=== PATIENT | male | born 1935 | race Caucasian/White ===

== ENCOUNTER 2024-03-20 10:48 | Outpatient (AMB) | payer MEDICARE, MEDICAID, SELFPAY ==
[2024-03-20 10:54] VITALS: BP 130/48; PULSE 63; O2SAT 96; BMI 28.2
--- NOTE | 2024-03-20 10:54 | HO.NEPHOV_ITS ---
Vital Signs 03/20/24 10:54 Height 5 ft 1 in Weight 149 lb BMI 28.2 BP 130/48 L Blood Pressure Location Rt brachial Position Sitting Pulse 63 Pulse Source Pulse Oximeter Pulse Oximetry (%) 96 Oxygen Delivery Method Room Air Intake Visit Reasons: CKD/ Conf w/daughter Electric Organ Checker Required: No Accompanied by: Daughter Allergies [email or web address] [From [facility]] Allergy (Unknown, Verified 03/20/24 10:58) Unknown Penicillins Allergy (Unknown, Verified 03/20/24 10:58) Hives HPI Comments Details: Blessing is a pleasant 89-year-old woman with a history of longstanding hypertension was found to have chronic kidney disease. Serum creatinine has been fluctuating between 1.2 and 1.4 mg/dL. Most recent serum creatinine was 1.8 with a EGFR of 40 mL/minute She was accompanied by her daughter. As for hypertension she is on amlodipine and losartan 25 mg b.i.d. along with metoprolol. erma [facility] Social History (Updated 03/20/24 @ 10:58 by AMADEO Guzman) Patient Tobacco Use Status: Former Tobacco user Review of Systems Const Denies fever(s) and Denies weight loss Card Denies chest pain Resp Denies cough and Denies hemoptysis GI Denies abdominal pain, Denies diarrhea and Denies nausea Musc Denies back pain Neuro Denies focal weakness Physical Exam Vital Signs: Last Vital Signs Pulse 63 03/20/24 10:54 BP 130/48 L 03/20/24 10:54 Pulse Ox 96 03/20/24 10:54 Oxygen Delivery Method Room Air 03/20/24 10:54 BMI result Body Mass Index 28.2 Const General: comfortable Nutritional Appearance: well nourished Orientation/consciousness: patient oriented x3 HEENT Head: No normal to inspection Mouth: moist mucous membranes Neck Neck: Yes supple and Yes no JVD Resp Auscultation: clear to auscultation bilaterally and no rales Cardio Jugular venous distension: no JVD Palpation: no palpable S3 and no palpable S4 Heart sounds: no rubs GI Palpation (GI): Soft to palpation and nontender Percussion: No Fluid wave present General: Yes no CVA tenderness Back/Spine/Pelvis Back: no CVA tenderness Skin General skin exam: no rashes or lesions noted Neuro General: patient oriented x3 Extrem General: Yes no pedal edema and No clubbing Results Reviewed Results Reviewed: Creatinine 1.28. All labs are reviewed Renal ultrasonogram in 10/30/2021 showed small kidneys measuring around 8.9 cm with increased echogenicity no hydronephrosis Nephrology Results: No Data to Display Assessment & Plan Assessment & Plan (1) CKD (chronic kidney disease): Code(s): N18.9 - Chronic kidney disease, unspecified Category: Medical (2) CKD (chronic kidney disease): Code(s): N18.9 - Chronic kidney disease, unspecified Category: Medical Plan . Blessing is a pleasant 89-year-old woman with a history of hypertension with CKD. She had an episode of ARLENE with creatinine peaking at 1.6 mg/dL. Currently serum creatinine is down to 1.28 which may be the baseline. Differential diagnosis for the CKD would include hypertensive nephrosclerosis. In the past there was no evidence of any obstruction.( October 2021) Recent urine sediments were bland therefore glomerulonephritis or interstitial disease seem unlikely. Recommendation I have initiated today workup for CKD including basic urine studies along with a follow up a renal ultrasonogram. Encouraged her to stay on low-sodium diet Increase p.o. fluid intake to maintain adequate hydration. Continue to avoid nephrotoxic agents including NSAIDs. Goal is to maintain blood pressure less than 130/80. Once the baseline workup is completed she returned to office in the next few weeks. I will keep you updated with her progress. I have reassured her and answered all her questions. Orders: Orders Complete Blood Count no Diff 2 Days N18.9 - Chronic kidney disease, unspecified UA and rflx microscopic 2 Days N18.9 - Chronic kidney disease, unspecified US renal BI Today N18.9 - Chronic kidney disease, unspecified Total Protein Urine Random 2 Days N18.9 - Chronic kidney disease, unspecified Creatinine Urine 2 Days N18.9 - Chronic kidney disease, unspecified Coding Level of Care Code New Pt Level 4 (24344) Diagnoses CKD (chronic kidney disease) N18.9
== END 2024-03-20 11:42 | disposition home or self-care (01) ==
PROVIDERS: PCP Physician Assistant Medical; Visit Provider Internal Medicine Hypertension Specialist
DX: N18.9 Chronic kidney disease, unspecified (principal)
CPT/HCPCS: 99204

== ENCOUNTER → 2024-03-20 10:48 | Outpatient (BNVA) | payer MEDICARE, MEDICAID, SELFPAY | PROVIDERS: PCP Physician Assistant Medical; Visit Provider Internal Medicine Hypertension Specialist | DX: N18.9 Chronic kidney disease, unspecified (principal) | CPT/HCPCS: 99202 ==

== ENCOUNTER 2024-06-21 14:44 | Outpatient (AMB) | payer MEDICARE, MEDICAID, SELFPAY ==
[2024-06-21 14:50] VITALS: BP 118/50; PULSE 64; O2SAT 96
--- NOTE | 2024-06-21 14:50 | HO.NEPHOV_ITS ---
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 Accompanied by: Daughter Allergies [email or web address] [From [facility]] Allergy (Unknown, Verified 06/21/24 14:56) Unknown Penicillins Allergy (Unknown, Verified 06/21/24 14:56) Hives Medication List - Last Reconciled 06/21/24 by Blayne Epps MD amlodipine 5 mg PO DAILY aspirin 81 mg PO DAILY bupropion HCl XL 150 mg PO QAM cholecalciferol (vitamin D3) 25 mcg PO DAILY docusate sodium 100 mg PO BEDTIME escitalopram oxalate 10 mg PO DAILY ipratropium bromide intranasal levothyroxine 112 mcg PO DAILY losartan 25 mg PO BID metoprolol succinate ER 25 mg PO BID omeprazole 40 mg PO DAILY rosuvastatin 10 mg PO BEDTIME HPI Comments Details: Blessing is a pleasant 89-year-old woman with a history of longstanding h ypertension was found to have chronic kidney disease. Serum creatinine has been fluctuating between 1.2 and 1.4 mg/dL. Most recent serum creatinine was 1.8 with a EGFR of 40 mL/minute She was accompanied by her daughter. As for hypertension she is on amlodipine and losartan 25 mg b.i.d. along with metoprolol. 06/21/24 REcently had a course of BActrim for bladder infection [facility] Social History Patient Tobacco Use Status: Former Tobacco user Physical Exam Vital Signs: Last Vital Signs Pulse 64 06/21/24 14:50 BP 118/50 L 06/21/24 14:50 Pulse Ox 96 06/21/24 14:50 Oxygen Delivery Method Room Air 06/21/24 14:50 Const General: comfortable Nutritional Appearance: well nourished Orientation/consciousness: patient oriented x3 HEENT Head: No normal to inspection Mouth: moist mucous membranes Neck Neck: Yes supple and Yes no JVD Resp Auscultation: clear to auscultation bilaterally and no rales Cardio Jugular venous distension: no JVD Palpation: no palpable S3 and no palpable S4 Heart sounds: no rubs GI Palpation (GI): Soft to palpation and nontender Percussion: No Fluid wave present General: Yes no CVA tenderness Back/Spine/Pelvis Back: no CVA tenderness Skin General skin exam: no rashes or lesions noted Neuro General: patient oriented x3 Extrem General: Yes no pedal edema and No clubbing Results Reviewed Nephrology Results: No Data to Display Assessment & Plan Assessment & Plan (1) CKD (chronic kidney disease): Code(s): N18.9 - Chronic kidney disease, unspecified Category: Medical (2) CKD (chronic kidney disease): Code(s): N18.9 - Chronic kidney disease, unspecified Category: Medical Plan . Blessing is a pleasant 89-year-old woman with a history of hypertension with CKD. She had an episode of ARLENE with creatinine peaking at 1.6 mg/dL. Currently serum creatinine is down to 1.28 which may be the baseline. Differential diagnosis for the CKD would include hypertensive nephrosclerosis. In the past there was no evidence of any obstruction.( October 2021) Recent urine sediments were bland therefore glomerulonephritis or interstitial disease seem unlikely. Encouraged her to stay on low-sodium diet Increase p.o. fluid intake to maintain adequate hydration. Continue to avoid nephrotoxic agents including NSAIDs. Goal is to maintain blood pressure less than 130/80. Recheck Creatinine since she was on Bactrim Orders: Orders Basic Metabolic Panel 3 Months N18.9 - Chronic kidney disease, unspecified Coding Level of Care Code Est Pt Level 4 (99900) Diagnoses CKD (chronic kidney disease) N18.9
== END 2024-06-21 15:23 | disposition home or self-care (01) ==
PROVIDERS: PCP Physician Assistant Medical; Visit Provider Internal Medicine Hypertension Specialist
DX: I12.9 Hypertensive chronic kidney disease with stage 1 through stage 4 chronic kidney disease, or unspecified chronic kidney disease (principal); N18.9 Chronic kidney disease, unspecified
CPT/HCPCS: 99214

== ENCOUNTER → 2024-06-21 14:44 | Outpatient (BNVA) | payer MEDICARE, MEDICAID, SELFPAY | PROVIDERS: PCP Physician Assistant Medical; Visit Provider Internal Medicine Hypertension Specialist | DX: I12.9 Hypertensive chronic kidney disease with stage 1 through stage 4 chronic kidney disease, or unspecified chronic kidney disease (principal); N18.9 Chronic kidney disease, unspecified | CPT/HCPCS: 99212 ==

== ENCOUNTER 2024-11-08 14:53 | Outpatient (AMB) | payer MEDICARE, MEDICAID, SELFPAY ==
[2024-11-08 14:53] VITALS: BP 122/52; PULSE 70; O2SAT 97; BMI 32.1
--- NOTE | 2024-11-08 14:53 | HO.NEPHOV_ITS ---
Vital Signs 11/08/24 14:53 Height 5 ft 1 in Weight 170 lb BMI 32.1 BP 122/52 L Blood Pressure Location Rt brachial Position Sitting Pulse 70 Pulse Source Pulse Oximeter Pulse Oximetry (%) 97 Oxygen Delivery Method Room Air Intake Visit Reasons: 4 Mon follow up/ Conf Events Associate Required: No Accompanied by: Daughter Allergies [email or web address] [From [facility]] Allergy (Unknown, Verified 11/08/24 14:55) Unknown Penicillins Allergy (Unknown, Verified 11/08/24 14:55) Hives Medication List - Last Reconciled 11/08/24 by Blayne Epps MD amlodipine 5 mg PO DAILY aspirin 81 mg PO DAILY bupropion HCl XL 150 mg PO QAM cholecalciferol (vitamin D3) 25 mcg PO DAILY docusate sodium 100 mg PO BEDTIME escitalopram oxalate 10 mg PO DAILY ipratropium bromide intranasal levothyroxine 112 mcg PO DAILY losartan 25 mg PO BID metoprolol succinate ER 25 mg PO BID omeprazole 40 mg PO DAILY rosuvastatin 10 mg PO BEDTIME HPI Comments Details: Blessing is a pleasant 89-year-old woman with a history of longstanding hypertension was found to have chronic kidney disease. Serum creatinine has been fluctuating between 1.2 and 1.4 mg/dL. Most recent serum creatinine was 1.8 with a EGFR of 40 mL/minute She was accompanied by her daughter. As for hypertension she is on amlodipine and losartan 25 mg b.i.d. along with metoprolol. 06/21/24 REcently had a course of BActrim for bladder infection 11/08/24 -Doing well. No new issues [facility] Social History Patient Tobacco Use Status: Former Tobacco user Physical Exam Vital Signs: Last Vital Signs Pulse 70 11/08/24 14:53 BP 122/52 L 11/08/24 14:53 Pulse Ox 97 11/08/24 14:53 Oxygen Delivery Method Room Air 11/08/24 14:53 BMI result Body Mass Index 32.1 Comfortable Neck supple no JVD. Lungs entry equal no rales. Heart S1-S2 heard no gallop or rub. Abdomen soft nontender. Neuro alert awake oriented. No asterixis. Extremities no edema. Results Reviewed Results Reviewed: October 2024 Creatinine 1.17 EGFR 43 mL/minute. Nephrology Results: No Data to Display Assessment & Plan Assessment & Plan (1) CKD (chronic kidney disease): Code(s): N18.9 - Chronic kidney disease, unspecified Category: Medical (2) CKD (chronic kidney disease): Code(s): N18.9 - Chronic kidney disease, unspecified Category: Medical Plan . Blessing is a pleasant 89-year-old woman with a history of hypertension with CKD. She had an episode of ARLENE with creatinine peaking at 1.6 mg/dL. Currently serum creatinine is down to 1.17 which may be the baseline. Differential diagnosis for the CKD would include hypertensive nephrosclerosis. In the past there was no evidence of any obstruction.( October 2021) Recent urine sediments were bland therefore glomerulonephritis or interstitial disease seem unlikely. Encouraged her to stay on low-sodium diet Increase p.o. fluid intake to maintain adequate hydration. Continue to avoid nephrotoxic agents including NSAIDs. Goal is to maintain blood pressure less than 130/80. Orders: Orders Basic Metabolic Panel 6 Months N18.9 - Chronic kidney disease, unspecified Coding Level of Care Code Est Pt Level 4 (77845) Diagnoses CKD (chronic kidney disease) N18.9
--- OUTSIDE RECORDS SUMMARY | 2024-11-08 17:02 | XMS_ITS | Encounter Summary ---
Author Organization [facility] Address [address] [place] [address] Care Team Providers Care Assistant Professor Of Communication Name Role Phone Lala Ruiz Primary Care Provider [phone] Encounter Details Date Type Department Care Team (Late st Contact Info) Description 07/17/2024 11:10 AM EDT Hospital Encounter TH HISTORIC ENCOUNTERS [facility] ONLY Lala Ruiz PA [address] [place] [address] Social History Tobacco Use Types Packs/Day Years Used Date Smoking Tobacco: Former Cigarettes 1 23 0 11/27/1956 - 11/27/1979 Smokeless Tobacco: Never Alcohol Use Standard Drinks/Week Comments No 0 (1 standard drink = 0.6 oz pur e alcohol) Sex and Gender Information Value Date Recorded Sex Assigned at Not on file Gender Identity Not on file Sexual Orientation Not on file documented as of this encounter Last Filed Vital Signs Vital Sign Reading Time Taken Comments Blood Pressure 129/63 07/17/2024 11:13 AM EDT Pulse 71 07/17/2024 11:13 AM EDT Temperature - - Respiratory Rate - - Oxygen Saturation - - Inhaled Oxygen Concentration - - Weight 78.6 kg (173 lb 3.2 oz) 07/17/2024 11:13 AM EDT Height 154.9 cm (5' 1 ) 10/15/2023 2:15 PM EST Body Mass Index 32.73 10/15/2023 2:15 PM EST documented in this encounter Progress Notes * STEPHANIE Reynolds - 07/17/2024 11:15 AM EDT Abdominal pain, resolved Acute gastroenteritis symptoms, resolved Abnormal CT abdomen consistent with colitis or enteritis - Refer the patient to a curriculum coordinator for further evaluation and management. - return to ER if any recurrent symptoms Urinary Tract Infection symptoms, resolved Culture from ER was negative - No need for further urine culture while on antibiotics. Bronchitis Sinusitis - Continue levofloxacin as directed - Prescribe benzonatate 100 mg 3 times daily as needed for cough suppression. - Advise the patient to use [id number] Delsym and fluticasone for postnasal drip and cough relief. Decreased Appetite according to patient's daughter Weight stable for over 3 years - Encourage the patient to consume nutritious meals and consider supplementing with Boost or Ensureif needed. - Monitor weight and report any significant changes to the healthcare provider. Microscopic Hematuria (Chronic) - Continue monitoring as the patient has been previously evaluated for this issue. - No further intervention needed at this time. Risks/benefits of the treatment plan were discussed thoroughly with patient. Patient is in agreement with the current plan of care and all questions were answered. Patient agreed to call immediately or go straight to the emergency room with any new or worsening symptoms, or any symptoms that patient or others find worrisome; patient will proceed to the ER immediately if unable to reach our office Patient will follow up in 3-5 days if no improvement (or as above) Chief Complaint: Chief Complaint Patient presents with ??? URI On abx but wants lungs checked, and she would like me to redip her urine to check to see if she still has infection , HPI: Blessing Arrieta is a 89 y.o. female. HPI The patient presents with a chief complaint of abdominal pain, which has improved since her visit to the ER. She had moderate to severe abdominal pain after experiencing a few days of diarrhea which has since resolved. The patient has a history of inflamed bowel on CT at the ER and was treated for a urinary tract infection in the hospital. She has had two doses of levofloxacin, which was prescribed for an upper respiratory infection/bronchitis. The patient reports a decreased appetite for the past few days, with no nausea or vomiting. She experienced diarrhea starting last Wednesday, which lasted until Wednesday, but has since resolved. She reports having had a scratchy throat while in the ER, but was advised not to worry about COVID as her labs were good. She completed a home COVID test, which was negative. The patient has been experiencing a cough with green sputum production, which has been keeping her up at night. She denies any fever, chills, chest pain, or shortness of breath. She spoke to a provider at our practice and was prescribed Levaquin to cover possible UTI as well as her respiratory symptoms. She reports overallshe is feeling better but is kept up at night with the cough and would like something for that. Remaining relevant ROS negative Vitals: Vitals: 07/17/24 1113 BP: 129/63 Pulse: 71 Temp: 96.6 ??F (35.9 ??C) SpO2: 97% Weight: 78.6 kg (173 lb 3.2 oz) Body mass index is 32.73 kg/m??. Allergies: Allergies Allergen Reactions ??? Penicillins Hives ??? Farxiga [Dapagliflozin] Other (See Comments) agitation Medications: Current Outpatient Medications Medication Sig Dispense Refill ??? acetaminophen (TYLENOL) 325 MG tablet Take 2 tablets (650 mg total) by mouth every 8 (eight) hours as needed for pain. ??? amLODIPine (NORVASC) tablet 5 mg Take 1 tablet (5 mg total) by mouth daily. ??? aspirin 81 MG EC tablet Take 1 tablet (81 mg total) by mouth daily. 100 tablet 1 ??? Brexpiprazole (Rexulti) 2 MG TABS Take 1 tablet by mouth daily. 90 tablet 1 ??? buPROPion (WELLBUTRIN XL) 150 MG 24 hr tablet TAKE ONE TABLET BY MOUTH EVERY MORNING 90 tablet 3 ??? docusate sodium (COLACE) 100 MG capsule Take 1 capsule (100 mg total) by mouth every night at bedtime. ??? escitalopram (LEXAPRO) tablet 10 mg TAKE 1/2 TABLET BY MOUTH TWICE DAILY 90 tablet 5 ??? ipratropium (ATROVENT) 0.03 % nasal spray spray or apply 2 sprays inside Nose 3 (three) times aday. 30 mL 2 ??? ketoconazole (NIZORAL) 2 % cream Apply topically 2 (two) times a day. To area under breasts as needed 30 g 0 ??? levoFLOXacin (Levaquin) 500 MG tablet Take 1 tablet (500 mg total) by mouth daily for 7 days. 7tablet 0 ??? levothyroxine (SYNTHROID) tablet 112 mcg TAKE ONE TABLET BY MOUTH EVERY DAY 90 tablet 3 ??? losartan (COZAAR) tablet 25 mg TAKE ONE TABLET BY MOUTH TWICE DAILY TO protect kidneys AND blood pressure 60 tablet 5 ??? metoprolol succinate (TOPROL-XL) 24 hr tablet 25 mg TAKE ONE TABLET BY MOUTH TWICE DAILY 180 tablet 3 ??? nitrofurantoin, macrocrystal-monohydrate, (MACROBID) 100 MG capsule Take 1 capsule (100 mg total) by mouth 2 (two) times a day for 7 days. 14 capsule 0 ??? omeprazole (PriLOSEC) 40 MG capsule TAKE ONE CAPSULE BY MOUTH AT BEDTIME 84 capsule 3 ??? RESTASIS 0.05 % ophthalmic emulsion Place 1 drop into both eyes 2 (two) times a day. 3 ??? rosuvastatin (CRESTOR) tablet 10 mg TAKE ONE TABLET BY MOUTH EVERY DAY 84 tablet 5 ??? vitamin D3 (cholecalciferol) 25 MCG (1000 UT) tablet Take 1 tablet (25 mcg total) by mouth daily. No current facility-administered medications for this visit. Social History: Social History Socioeconomic History ??? Marital status: Spouse name: Not on file ??? Number of children: Not on file ??? Years of education: Not on file ??? Highest education level: Not on file Occupational History ??? Not on file Tobacco Use ??? Smoking status: Former Packs/day: 1.00 Years: 20.00 Additional pack years: 0.00 Total pack years: 20.00 Types: Cigarettes Start date: 11/27/1956 Quit date: 11/27/1979 Years since quittin.6 ??? Smokeless tobacco: Never Substance and Sexual Activity ??? Alcohol use: No ??? Drug use: No ??? Sexual activity: Not on file Other Topics Concern ??? Not on file Social History Narrative ??? Not on file Social Determinants of Health Financial Resource Strain: Low Risk (06/07/2024) Overall Financial Resource Strain (CARDIA) ??? Difficulty of Paying Living Expenses: Not very hard Food Insecurity: No Food Insecurity (06/07/2024) Hunger Vital Sign ??? Worried About Running Out of Food in the Last Year: Never true ??? Ran Out of Food in the Last Year: Never true Transportation Needs: No Transportation Needs (06/07/2024) PRAPARE - Transportation ??? Lack of Transportation (Medical): No ??? Lack of Transportation (Non-Medical): No Social Connections: Not on file Housing Stability: Low Risk (06/07/2024) Housing Stability Vital Sign ??? Unable to Pay for Housing in the Last Year: No ??? Number of Places Lived in the Last Year: 1 ??? Unstable Housing in the Last Year: No Labs: Office Visit on 07/17/2024 Component Date Value Ref Range Status ??? POCT Glucose, Urine 07/17/2024 Negative Negative Final ??? POCT Urine Bilirubin 07/17/2024 Negative Final ??? POCT Ketones, Urine 07/17/2024 Negative Negative Final ??? POCT Specfic [place], Urine 07/17/2024 1.025 1.005 - 1.030 Final ??? POCT Blood, Urine 07/17/2024 Moderate (A) Negative Final ??? POCT Urine pH 07/17/2024 6.0 4.5 - 8.0 Final ??? POCT Protein, Urine 07/17/2024 Negative Negative Final ??? POCT Urine Urobilinogen 07/17/2024 Normal Final ??? POCT Nitrite, Urine 07/17/2024 Negative Negative, Unable to obtain valid result Final ??? POCT Leukocytes, Urine 07/17/2024 Negative Negative Final Admission on 07/12/2024, Discharged on 07/12/2024 Component Date Value Ref Range Status ??? Ventricular Rate ECG/Min 07/12/2024 72 BPM Final ??? Atrial Rate 07/12/2024 72 BPM Final ??? RI-Interval 07/12/2024 206 ms Final ??? QRS-Interval 07/12/2024 102 ms Final ??? QT-Interval 07/12/2024 418 ms Final ??? QTc 07/12/2024 457 ms Final ??? P [place] 07/12/2024 64 degrees Final ??? R [place] 07/12/2024 -30 degrees Final ??? T [place] 07/12/2024 7 degrees Final ??? WBC 07/12/2024 7.8 4.0 - 10.5 K/uL Final ??? RBC 07/12/2024 3.68 (L) 4.2 - 5.4 M/uL Final ??? Hemoglobin 07/12/2024 11.0 (L) 12.5 - 16.0 g/dL Final ??? Hematocrit 07/12/2024 35.2 (L) 37 - 47 % Final ??? MCV 07/12/2024 95.7 78 - 100 fL Final ??? MCH 07/12/2024 29.9 25 - 33 pg Final ??? MCHC 07/12/2024 31.3 (L) 32 - 36 g/dL Final ??? RDW 07/12/2024 13.2 12.1 - 16.2 % Final ??? Platelets 07/12/2024 201 150 - 450 K/uL Final ??? MPV 07/12/2024 10.3 7.4 - 11.4 fL Final ??? Neutrophils 07/12/2024 80.1 (H) 44 - 74 % Final ??? Lymphocytes 07/12/2024 11.2 (L) 20 - 48 % Final ??? Monocytes 07/12/2024 6.8 2 - 12 % Final ??? Eosinophils 07/12/2024 1.1 0 - 6 % Final ??? Basophils 07/12/2024 0.5 0 - 2 % Final ??? Neutrophils, Absolute 07/12/2024 6.3 1.8 - 7.8 K/uL Final ??? Lymphocytes Absolute 07/12/2024 0.9 (L) 1.0 - 3.2 K/uL Final ??? Monocytes Absolute 07/12/2024 0.5 0.0 - 0.8 K/uL Final ??? Eosinophils, Absolute 07/12/2024 0.1 0.0 - 0.5 K/uL Final ??? Basophils Absolute 07/12/2024 0.0 0.0 - 0.2 K/uL Final ??? Immature Granulocyte, Percent 07/12/2024 0.3 0 - 1 % Final ? ? Immature Granulocyte, Absolute 07/12/2024 0.02 <0.10 k/uL Final ??? Nucleated RBC 07/12/2024 0.0 0 - 1 % Final Comment: [place] [address] Rola Dave MD Director [facility] [id number] ??? BUN 07/12/2024 20 (H) 7 - 17 mg/dL Final ??? Creatinine, Blood 07/12/2024 1.2 (H) 0.5 - 1.0 mg/dL Final ? ? Glomerular Filtration Rate, Estima* 07/12/2024 43 (L) >60 Final Comment: <<NOTE>> This eGFR result was calculated using the Unified eGFR CKD-EPI Creatinine Equation (2020). ??? Sodium 07/12/2024 138 135 - 145 mmol/L Final ??? Potassium 07/12/2024 4.4 3.5 - 5.1 mmol/L Final ??? Chloride 07/12/2024 103 98 - 107 mmol/L Final ??? Carbon dioxide 07/12/2024 29 24 - 32 mmol/L Final ??? Anion Gap 07/12/2024 6 5 - 14 mmol/L Final ??? Glucose, Random 07/12/2024 112 70 - 199 mg/dL Final ??? Calcium 07/12/2024 9.3 8.4 - 10.2 mg/dL Final Comment: [place] [address] Rola Dave MD Director [facility] [id number] ??? Amylase 07/12/2024 22 (L) 29 - 103 U/L Final Comment: [place] [address] Rola Dave MD Director [facility] [id number] [id number] ??? Total Bilirubin 07/12/2024 0.6 0.3 - 1.0 mg/dL Final ??? Bilirubin, Direct 07/12/2024 0.1 0.0 - 0.2 mg/dL Final Comment: [place] [address] Rola Dave MD Director [facility] [id number] ??? Alkaline Phosphatase 07/12/2024 51 34 - 104 U/L Final ??? AST (SGOT) 07/12/2024 13 5 - 40 U/L Final ??? ALT (SGPT) 07/12/2024 6 (L) 7 - 52 U/L Final ??? LDH 07/12/2024 167 125 - 220 U/L Final Comment: [place] [address] Rola Dave MD Director [facility] [id number] [id number] ??? Lipase 07/12/2024 8 (L) 11 - 82 U/L Final Comment: [place] [address] Rola Dave MD Director [facility] [id number] [id number] ??? BNP 07/12/2024 86 0 - 100 pg/mL Final Comment: [place] [address] Rola Dave MD Director [facility] [id number] [id number] ??? High Sensitivity Troponin I 07/12/2024 6 0 - 14 ng/L Final Comment: hs-TnI results stratify to HIGH RISK category if any value > 100 ng/L or delta at 1 hour is greater than or equal to 15 ng/L (male and female). NOTE: Delta values are not applicable if symptoms began more than 12 hours pre-arrival. Risk stratification should include the calculation of the HEARt score. Testing performed using [facility] [employer] Access AccuTnl3+ Assay[place] [address] Rola Dave MD Director [facility] [id number] ??? Lactate W/Reflex LA 07/12/2024 0.7 0.5 - 2.0 mmol/L Final Comment: [place] [address] Rola Dave MD Director [facility] [id number] [id number] ??? Specimen Type: 07/12/2024 URINE CLEAN CATCH Final ??? Glucose, Ur 07/12/2024 NEGATIVE NEG mg/dL Final ??? Ketones, Ur 07/12/2024 NEGATIVE NEG mg/dL Final ??? Specific [place] 07/12/2024 1.020 1.005 - 1.030 Final ??? Occult Blood 07/12/2024 TRACE (A) NEG Final ??? pH, Ur 07/12/2024 5.5 4.5 - 8.0 Final ??? Protein, Ur 07/12/2024 NEGATIVE NEG mg/dL Final ??? Nitrite 07/12/2024 NEGATIVE NEG Final ??? Leukocyte Esterase 07/12/2024 SMALL (A) NEG Final ??? Clarity, UA 07/12/2024 CLEAR Final ??? Urine Color 07/12/2024 YELLOW Final Comment: Performed at [address] [address] Rola Dave MD Director [facility] [id number] ??? Specimen Description 07/12/2024 URINE CLEAN CATCH Final ??? Special Request 07/12/2024 NONE Final ??? Culture 07/12/2024 Final Value:1000 TO 10,000 COL/ML MIXED UROGENITAL ERIKA Performed at [address] [address], Rola Dave MD Director [facility] [id number] ??? Report Status 07/12/2024 FINAL Final 07/14/2024 ??? WBC, Ur 07/12/2024 16 (H) 0 - 5 /HPF Final ??? RBC, Ur 07/12/2024 2 0 - 3 /HPF Final ??? Epithelial Cells 07/12/2024 2 0 - 5 /LPF Final ??? Urine Casts 07/12/2024 Hyaline cast (A) NONE /LPF Final 2 ??? Bacteria, UA 07/12/2024 PRESENT (A) NONE Final ??? Mucus, UA 07/12/2024 PRESENT (A) NONE Final Comment: Performed at [address] [place] [address] Rola Dave MD Director [facility] [id number] Review of Systems: Review of Systems Negative to standard list unless noted in HPI Physical Exam: Physical Exam Pleasant elderly white female no distress Facial expression speech posture gait coordination strength and mental status within normal limits/at baseline Lungs clear bilaterally Heart regular rate and rhythm Abdomen soft nontender normal bowel sounds nondistended Extremities warm well-perfused without cyanosis or edema Reviewed ER notes, labs Orders Placed This Encounter: Orders Placed This Encounter Procedures ??? CULTURE, URINE, ROUTINE Standing Status: Future Number of Occurrences: 1 Standing Expiration Date: 07/17/2025 ??? Microscopic, Random Urine Standing Status: Future Number of Occurrences: 1 Standing Expiration Date: 07/17/2025 Order Specific Question: Release to patient Answer: Immediate [1] ??? POCT Urinalysis with Microscopy Order Specific Question: Release to patient Answer: Immediate [1] Procedures: Procedures Assessment/Plan: SNOMED CT(R) 1. Urinary tract infection without hematuria, site unspecified URINARY TRACT INFECTIOUS DISEASE POCT Urinalysis with Microscopy CULTURE, URINE, ROUTINE Microscopic, Random Urine CULTURE, URINE, ROUTINE Microscopic, Random Urine 2. Hematuria, unspecified type BLOOD IN URINE CULTURE, URINE, ROUTINE Microscopic, Random Urine CULTURE, URINE, ROUTINE Microscopic, Random Urine No problem-specific Assessment & Plan notes found for this encounter. Orders Placed This Encounter Procedures ??? CULTURE, URINE, ROUTINE Standing Status: Future Number of Occurrences: 1 Standing Expiration Date: 07/17/2025 ??? Microscopic, Random Urine Standing Status: Future Number of Occurrences: 1 Standing Expiration Date: 07/17/2025 Order Specific Question: Release to patient Answer: Immediate [1] ??? POCT Urinalysis with Microscopy Order Specific Question: Release to patient Answer: Immediate [1] No orders of the defined types were placed in this encounter. Lala LYNCH PA-C 07/17/2024 documented in this encounter Plan of Treatment Not on file documented as of this encounter Visit Diagnoses Not on filedocumented in this encounter Care Teams Assistant Professor Of Communication Relationship Specialty Start Date End Date Lala Ruiz PA PCP - General Advertising Copywriter 11/07/21 documented as of this encounter
--- OUTSIDE RECORDS SUMMARY | 2024-11-08 17:02 | XMS_ITS | Encounter Summary ---
Author Organization [facility] Address [address] [place] [address] Care Team Providers Care Tank Processor Name Role Phone Lala Ruiz Primary Care Provider Encounter Details Date Type Department Care Team (Late st Contact Info) Description 08/02/2024 8:02 AM EDT Hospital Encounter TH HISTORIC ENCOUNTERS [facility] ONLY Lala Ruiz PA [address] [place] [address] Social History Tobacco Use Types [...] Sign Reading Time Taken Comments Blood Pressure - - Pulse - - Temperature - - Respiratory Rate - - Oxygen Saturation - - Inhaled Oxygen Concentration - - Weight 77.1 kg (170 lb) 07/25/2024 3:00 AM EDT Height 152.4 cm (5') 07/25/2024 3:00 AM EDT Body Mass Index 33.2 07/25/2024 3:00 AM EDT documented in this encounter Progress Notes * STEPHANIE Reynolds - 08/02/2024 5:00 PM EDT Patient verbally consented to participate in a telehealth visit today. Prior to visit patient was offered a face to face encounter as well but preferred telemedicine. The patient is aware that if at any point they or the provider feel the visit is in not adequate they can opt for scheduling a face to face visit. Verbal consent for this telehealth visit was obtained after limitations of telehealthwere discussed with the patient. Risk of using a telemedicine provider include limited overall physical examination findings which may be difficult with diagnostic accuracy. Benefits of telehealth include ease of use and allowing for continued isolation precautions during the time of the pandemic. OV declined Video not available Adverse Reaction to Rexulti - Discontinue Rexulti due to increased anxiety, restlessness, and sleepiness (at 2-3 mg) (OK at 1 mg?) Sleep Disturbance - Continue mirtazapine 7.5 mg at bedtime. - Consider increasing dose to 15 mg as needed. Anxiety and Attention-Seeking Behavior - Refer to a geriatric psychiatrist/psychologist for evaluation and management. - Refer to [facility] for a comprehensive assessment. - Continue therapy focusing on limit-setting and anxiety management. - May take a second dose of mirtazapine 7.5 qd during the day if needed Possible Functional Decline and Fall Risk - Continue physical therapy for mobility assessment and improvement. (daughter reports she aces all of the PT exercises) - Monitor for signs and symptoms of acute physical impairment or cerebrovascular accident (facial droop, limb weakness). Caregiver Support for Supriya - Encourage visits to a therapist for support and guidance on limit-setting. - Emphasize the importance of consistency in care and boundary-setting. - Schedule a follow-up call to discuss patient progress and concerns. Medication Management - Simplify the medication regimen, focusing on mirtazapine at bedtime. - Monitor the patient's response to medication changes and adjust as needed. Risks/benefits of the treatment plan were discussed [...] no improvement (or as above) Chief Complaint: No chief complaint on file. , HPI: Blessing Arrieat is a 89 y.o. female. HPI Per daughter Supriya: The patient presents with a chief complaint of weirdness for 2 weeks, coinciding with the initiation/titration of Rexulti. The daughter reports that the patient has been experiencing increased anxiety, restlessness, sleepiness, and jittery legs/hands, which are known side effects of Rexulti. These symptoms have been worsening over the past 3 weeks, and the patient has become more fearful and distrustful of taking medications. The patient is experiencing weakness and shakiness while walking, posing a fall risk. She is attending physical therapy weekly at home and performing well, and the PT suggests that the issues may be more mental than physical. The patient's previous psychotherapist relationship ended after the therapist's surgery, and the daughter believes the therapist may not have been a good fit. A cigar binder consult has not been pursued due to patient unwillingness to travel any distance, although the daughter acknowledges the potential benefits. The daughter is struggling to differentiate between cognitive/mood issues and physical impairments in the patient. The patient is exhibiting attention-seeking and manipulative behavior. The daughter is considering personal therapy to help her set limits and manage the patient's care more effectively. Per pt The patient presents with a chief complaint of numbness in the head without accompanying headache, vision problems, or dizziness. CP, focal neuro, constitutional and remaining relevant ros negative. The patient expresses concern about their current medication and wishes to discontinue it. They report experiencing anxiety, frequently calling daughter Supriya for support, even though she has a / health aide. In terms of current care, the patient has an aide at home and a physical therapy (PT) visits weekly. Vitals: There were no vitals filed for this visit. There is no height or weight on file to calculate BMI. Allergies: Allergies Allergen Reactions ??? Penicillins Hives [...] by mouth daily. 100 tablet 1 ??? benzonatate (TESSALON) 100 MG capsule Take 1 capsule (100 mg total) by mouth 3 (three) times a day as needed for cough. 20 capsule 0 ??? Brexpiprazole (Rexulti) 2 MG TABS Take 1 tablet by mouth daily. 90 tablet 1 ??? Brexpiprazole (Rexulti) 3 MG TABS Take 3 mg by mouth daily. 30 tablet 3 ??? buPROPion (WELLBUTRIN XL) 150 MG 24 hr tablet TAKE ONE TABLET BY MOUTH EVERY MORNING 90 tablet 3 ??? Cholecalciferol (Vitamin D3) 25 MCG (1000 UT) CAPS Take 1 capsule by mouth daily. ??? docusate sodium (COLACE) 100 MG capsule [...] breasts as needed 30 g 0 ??? levothyroxine (SYNTHROID) tablet 112 mcg TAKE ONE TABLET BY MOUTH EVERY DAY 90 tablet 3 ??? losartan (COZAAR) tablet 25 mg TAKE ONE TABLET BY MOUTH TWICE DAILY TO protect kidneys AND blood pressure 60 tablet 5 ??? metoprolol succinate (TOPROL-XL) 24 hr tablet 25 mg Take 1/2 tablet once daily in the morning 45 tablet 3 ??? mirtazapine (REMERON) 7.5 MG tablet Take 1 tablet (7.5 mg total) by mouth daily as needed. 30 tablet 0 ??? omeprazole (PriLOSEC) 40 MG capsule [...] date: 11/27/1956 Quit date: 11/27/1979 Years since quittin.7 ??? Smokeless tobacco: Never Substance and Sexual [...] Housing in the Last Year: No Labs: Admission on 07/25/2024, Discharged on 07/25/2024 Component Date Value Ref Range Status ??? Ventricular Rate ECG/Min 07/25/2024 72 BPM Final ??? Atrial Rate 07/25/2024 72 BPM Final ??? IN-Interval 07/25/2024 198 ms Final ??? QRS-Interval 07/25/2024 126 ms Final ??? QT-Interval 07/25/2024 446 ms Final ??? QTc 07/25/2024 488 ms Final ??? P [place] 07/25/2024 39 degrees Final ??? R [place] 07/25/2024 -40 degrees Final ??? T [place] 07/25/2024 -9 degrees Final ??? WBC 07/25/2024 8.0 4.0 - 10.5 K/uL Final ??? RBC 07/25/2024 3.73 (L) 4.2 - 5.4 M/uL Final ??? Hemoglobin 07/25/2024 11.3 (L) 12.5 - 16.0 g/dL Final ??? Hematocrit 07/25/2024 34.8 (L) 37 - 47 % Final ??? MCV 07/25/2024 93.3 78 - 100 fL Final ??? MCH 07/25/2024 30.3 25 - 33 pg Final ??? MCHC 07/25/2024 32.5 32 - 36 g/dL Final ??? RDW 07/25/2024 13.1 12.1 - 16.2 % Final ??? Platelets 07/25/2024 217 150 - 450 K/uL Final ??? MPV 07/25/2024 9.6 7.4 - 11.4 fL Final ??? Neutrophils 07/25/2024 73.3 44 - 74 % Final ??? Lymphocytes 07/25/2024 18.0 (L) 20 - 48 % Final ??? Monocytes 07/25/2024 5.8 2 - 12 % Final ??? Eosinophils 07/25/2024 1.6 0 - 6 % Final ??? Basophils 07/25/2024 0.8 0 - 2 % Final ??? Neutrophils, Absolute 07/25/2024 5.9 1.8 - 7.8 K/uL Final ??? Lymphocytes Absolute 07/25/2024 1.4 1.0 - 3.2 K/uL Final ??? Monocytes Absolute 07/25/2024 0.5 0.0 - 0.8 K/uL Final ??? Eosinophils, Absolute 07/25/2024 0.1 0.0 - 0.5 K/uL Final ??? Basophils Absolute 07/25/2024 0.1 0.0 - 0.2 K/uL Final ??? Immature Granulocyte, Percent 07/25/2024 0.5 0 - 1 % Final ? ? Immature Granulocyte, Absolute 07/25/2024 0.04 <0.10 k/uL Final ??? Nucleated RBC 07/25/2024 0.0 0 - 1 % Final Comment: Performed at [address] [address] Rola Dave MD Director [facility] [id number] ??? BUN 07/25/2024 13 7 - 17 mg/dL Final ??? Creatinine, Blood 07/25/2024 1.0 0.5 - 1.0 mg/dL Final ? ? Glomerular Filtration Rate, Estima* 07/25/2024 54 (L) >60 Final Comment: <<NOTE>> This eGFR result was calculated using the Unified eGFR CKD-EPI Creatinine Equation (2020). ??? Sodium 07/25/2024 137 135 - 145 mmol/L Final ??? Potassium 07/25/2024 3.9 3.5 - 5.1 mmol/L Final ??? Chloride 07/25/2024 100 98 - 107 mmol/L Final ??? Carbon dioxide 07/25/2024 29 24 - 32 mmol/L Final ??? Anion Gap 07/25/2024 9 5 - 14 mmol/L Final ??? Glucose, Random 07/25/2024 107 70 - 199 mg/dL Final ??? Calcium 07/25/2024 9.6 8.4 - 10.2 mg/dL Final Comment: [place] [address] Rola Dave MD Director [facility] [id number] [id number] ??? Amylase 07/25/2024 23 (L) 29 - 103 U/L Final Comment: [place] [address] Rola Dave MD Director [facility] [id number] [id number] ??? Total Bilirubin 07/25/2024 0.6 0.3 - 1.0 mg/dL Final ??? Bilirubin, Direct 07/25/2024 0.2 0.0 - 0.2 mg/dL Final Comment: Performed at [address] [address] Rola Dave MD Director [facility] [id number] [id number] ??? Alkaline Phosphatase 07/25/2024 57 34 - 104 U/L Final ??? AST (SGOT) 07/25/2024 15 5 - 40 U/L Final ??? ALT (SGPT) 07/25/2024 6 (L) 7 - 52 U/L Final ??? LDH 07/25/2024 182 125 - 220 U/L Final Comment: [place] [address] Rola Dave MD Director [facility] [id number] 0358 ??? Lipase 07/25/2024 12 11 - 82 U/L Final Comment: [place] [address] Rola Dave MD Director [facility] [id number] 0358 ??? High Sensitivity Troponin I 07/25/2024 8 0 - 14 ng/L Final Comment: hs-TnI results stratify to HIGH RISK category if any value > 100 ng/L or delta at 1 hour is greater than or equal to 15 ng/L (male and female). NOTE: Delta values are not applicable if symptoms began more than 12 hours pre-arrival. Risk stratification should include the calculation of the HEARt score. Testing performed using [employer] Access AccuTnl3+ Assay[place] [address] Rola Dave MD Director [facility] [id number] [id number] ??? Specimen Type: 07/25/2024 URINE CLEAN CATCH Final ??? Glucose, Ur 07/25/2024 NEGATIVE NEG mg/dL Final ??? Ketones, Ur 07/25/2024 NEGATIVE NEG mg/dL Final ??? Specific [place] 07/25/2024 1.010 1.005 - 1.030 Final ??? Occult Blood 07/25/2024 TRACE (A) NEG Final ??? pH, Ur 07/25/2024 6.0 4.5 - 8.0 Final ??? Protein, Ur 07/25/2024 NEGATIVE NEG mg/dL Final ??? Nitrite 07/25/2024 NEGATIVE NEG Final ??? Leukocyte Esterase 07/25/2024 NEGATIVE NEG Final ??? Clarity, UA 07/25/2024 HAZY Final ??? Urine Color 07/25/2024 YELLOW Final Comment: Performed at [place] [id number] Rola Dave MD Director [facility] [id number] 0358 ??? Specimen Description 07/25/2024 URINE CLEAN CATCH Final ??? Special Request 07/25/2024 NONE Final ??? Culture 07/25/2024 Final Value:NO GROWTH (<1000 COL/ML) Performed at [address] [address], Rola Dave MD Director [facility] [id number] [place] [address] ??? Report Status 07/25/2024 FINAL Final 07/26/2024 ??? WBC, Ur 07/25/2024 6 (H) 0 - 5 /HPF Final ??? RBC, Ur 07/25/2024 8 (H) 0 - 3 /HPF Final ??? Epithelial Cells 07/25/2024 6 (H) 0 - 5 /LPF Final Comment: Performed at [place] [id number] Rola Dave MD Director [facility] [id number] [id number] Office Visit on 07/17/2024 Component Date Value Ref Range Status ??? POCT Glucose, Urine 07/17/2024 Negative Negative Final ??? POCT Urine Bilirubin 07/17/2024 Negative Final ??? POCT Ketones, Urine 07/17/2024 Negative Negative Final ??? POCT Specfic [place], Urine 07/17/2024 1.025 1.005 - 1.030 Final [...] Atrial Rate 07/12/2024 72 BPM Final ??? IN-Interval 07/12/2024 206 ms Final ??? QRS-Interval 07/12/2024 102 ms Final ??? QT-Interval 07/12/2024 418 ms Final ??? QTc 07/12/2024 457 ms Final ??? P [place] Laird 07/12/2024 64 degrees Final ??? R [place] 07/12/2024 -30 degrees Final ??? T [place] Laird 07/12/2024 7 degrees Final ??? WBC 07/12/2024 [...] - 1 % Final Comment: Performed at [address] [place] [address] Rola Dave MD Director [facility] [id number] 0358 ??? BUN 07/12/2024 20 (H) 7 [...] - 10.2 mg/dL Final Comment: Performed at [address] [place] [address] Rola Dave MD Director [facility] [id number] 0358 ??? Amylase 07/12/2024 22 (L) 29 - 103 U/L Final Comment: Performed at [address] [place] [address] Rola Dave MD Director [facility] [id number] 0358 ??? Total Bilirubin 07/12/2024 0.6 0.3 - 1.0 mg/dL Final ??? Bilirubin, Direct 07/12/2024 0.1 0.0 - 0.2 mg/dL Final Comment: [place] [address] Rola Dave MD Director [facility] [id number] 0358 ??? Alkaline Phosphatase 07/12/2024 51 34 - 104 U/L Final ??? AST (SGOT) 07/12/2024 13 5 - 40 U/L Final ??? ALT (SGPT) 07/12/2024 6 (L) 7 - 52 U/L Final ??? LDH 07/12/2024 167 125 - 220 U/L Final Comment: [place] [address] Rola Dave MD Director [facility] [id number] 0358 ??? Lipase 07/12/2024 8 (L) 11 - 82 U/L Final Comment: [place] [address] Rola Dave MD Director [facility] [id number] 0358 ??? BNP 07/12/2024 86 0 - 100 pg/mL Final Comment: [place] [address] Rola Dave MD Director [facility] [id number] [id number] ??? High Sensitivity Troponin I 07/12/2024 [...] of the HEARt score. Testing performed using [employer] Access AccuTnl3+ Assay[place] [address] Rola Dave MD Director [facility] [id number] 0358 ??? Lactate W/Reflex LA 07/12/2024 0.7 0.5 - 2.0 mmol/L Final Comment: Performed at [place] [address] Rola Dave MD Director [facility] [id number] 0358 ??? Specimen Type: 07/12/2024 URINE CLEAN CATCH Final ??? Glucose, Ur 07/12/2024 NEGATIVE NEG mg/dL Final ??? Ketones, Ur 07/12/2024 NEGATIVE NEG mg/dL Final ??? Specific [place] 07/12/2024 1.020 1.005 - 1.030 Final ??? Occult Blood 07/12/2024 TRACE (A) NEG Final ??? pH, Ur 07/12/2024 5.5 4.5 - 8.0 Final ??? Protein, Ur 07/12/2024 NEGATIVE NEG mg/dL Final ??? Nitrite 07/12/2024 NEGATIVE NEG Final ??? Leukocyte Esterase 07/12/2024 SMALL (A) NEG Final ??? Clarity, UA 07/12/2024 CLEAR Final ??? Urine Color 07/12/2024 YELLOW Final Comment: [place] [address] Rola Dave MD Director [facility] [id number] 0358 ??? Specimen Description 07/12/2024 URINE CLEAN CATCH Final ??? Special Request 07/12/2024 NONE Final ??? Culture 07/12/2024 Final Value:1000 TO 10,000 COL/ML MIXED UROGENITAL ERIKA Performed at [address] [address], Rola Dave MD Director [facility] [id number] 0623 ??? Report Status 07/12/2024 FINAL Final [...] PRESENT (A) NONE Final Comment: Performed at [facility] [address] [place] [address] Rola Dave MD Director [facility] [id number] [id number] Review of Systems: Review of Systems Negative to standard list unless noted in HPI Physical Exam: Physical Exam Pleasant patient no distress Attitude: Mildly oppositional Speech: Intonation, rate normal; appropriate Thought Processes: [place] Mood: Anxious Affect: Congruent Insight: Fair No delusions No obvious deficits of attention, concentration, memory, or judgment No SI HI AH VH Telemed limitations reviewed w pt and monica Orders Placed This Encounter: No orders of the defined types were placed in this encounter. Procedures: Procedures Assessment/Plan: SNOMED CT(R) 1. Anxiety ANXIETY 2. Medication monitoring encounter PATIENT ENCOUNTER STATUS 3. Lightheadedness LIGHTHEADEDNESS No problem-specific Assessment & Plan notes found for this encounter. No orders of the defined types were placed in this encounter. No orders of the defined types were placed in this encounter. Lala LYNCH PA-C 08/02/2024 documented in this encounter Plan of Treatment Not on file documented as of this encounter Visit Diagnoses Not on filedocumented in this encounter Care Teams Tank Processor Relationship Specialty Start Date End Date Lala Ruiz PA PCP - General Polysomnography Tech 11/07/21 documented as of this encounter
--- OUTSIDE RECORDS SUMMARY | 2024-11-08 17:02 | XMS_ITS | Clinical Summary ---
Author Organization [facility] Address [address] [place] [address] Care Team Providers Care Transcribing Machine Mechanic Name Role Phone Lala Ruiz PA-C Primary Care Provider [phone] Allergies Active Allergy Reactions Criticality Noted Date Comments Dapagliflozin Other (See Comments) Low 03/25/2023 agitation Penicillins Hives 11/27/2016 Medications Medication Sig Dispensed Refills Start Date End Date Status RESTASIS 0.05 % ophthalmic emulsion Place 1 drop into both eyes 2 (two) times a day. 3 07/17/2019 Active acetaminophen (TYLENOL) 325 MG tablet Take 2 tablets (650 mg total) by mouth every 8 (eight) hours as needed for pain. 0 Active amLODIPine (NORVASC) tablet 5 mg Take 1 tablet (5 mg total) by mouth daily. 0 05/07/2022 Active aspirin 81 MG EC tablet Take 1 tablet (81 mg total) by mouth daily. 100 tablet 1 07/21/2022 Active docusate sodium (COLACE) 100 MG capsule Take 1 capsule (100 mg total) by mouth every night at bedtime. 0 Active vitamin D3 (cholecalciferol) 25 MCG (1000 UT) tablet Take 1 tablet (25 mcg total) by mouth daily. 0 Active ketoconazole (NIZORAL) 2 % cream Apply topically 2 (two) times a day. To area under breasts as needed 30 g 0 01/04/2023 Active omeprazole (PriLOSEC) 40 MG capsule TAKE ONE CAPSULE BY MOUTH AT BEDTIME 84 capsule 3 01/17/2024 Active ipratropium (ATROVENT) 0.03 % nasal spray spray or apply 2 sprays inside Nose 3 (three) times a day. 30 mL 2 01/26/2024 01/25/2025 Active buPROPion (WELLBUTRIN XL) 150 MG 24 hr tablet TAKE ONE TABLET BY MOUTH EVERY MORNING 90 tablet 3 02/10/2024 Active levothyroxine (SYNTHROID) tablet 112 mcg TAKE ONE TABLET BY MOUTH EVERY DAY 90 tablet 3 04/04/2024 Active rosuvastatin (CRESTOR) tablet 10 mgIndications:Mixed hyperlipidemia TAKE ONE TABLET BY MOUTH EVERY DAY 84 tablet 5 05/21/2024 Active losartan (COZAAR) tablet 25 mg TAKE ONE TABLET BY MOUTH TWICE DAILY TO protect kidneys AND blood pressure 60 tablet 5 05/21/2024 Active escitalopram (LEXAPRO) tablet 10 mg TAKE 1/2 TABLET BY MOUTH TWICE DAILY 90 tablet 5 05/21/2024 Active Brexpiprazole (Rexulti) 2 MG TABS Take 1 tablet by mouth daily. 90 tablet 1 06/30/2024 Active benzonatate (TESSALON) 100 MG capsule Take 1 capsule (100 mg total) by mouth 3 (three) times a day as needed for cough. 20 capsule 0 07/17/2024 Active metoprolol succinate (TOPROL-XL) 24 hr tablet 25 mgIndications:Benign essential HTN Take 1/2 tablet once daily in the morning 45 tablet 3 07/27/2024 Active Brexpiprazole (Rexulti) 3 MG TABS Take 3 mg by mouth daily. 30 tablet 3 07/28/2024 Active mirtazapine (REMERON) 7.5 MG tablet Take 1 tablet (7.5 mg total) by mouth daily as needed. 30 tablet 0 07/28/2024 Active Cholecalciferol (Vitamin D3) 25 MCG (1000 UT) CAPS Take 1 capsule by mouth daily. 0 06/24/2024 Active Active Problems Problem Noted Date Diagnosed Date Stage 3b chronic kidney disease 03/23/2024 Essential hypertension 09/06/2023 Enteritis 01/20/2023 Gastroenteritis 01/20/2023 Stage 3a chronic kidney disease 08/24/2022 Normochromic normocytic anemia 07/06/2022 Dizziness 06/02/2022 Recurrent major depressive disorder, in full rem ission 10/20/2021 Acquired hypothyroidism 04/26/2019 Elevated coronary artery calcium score 8 Mixed dyslipidemia 08/29/2018 Trigger finger, right index finger 12/27/2017 Trigger finger, right middle finger 12/27/2017 Status post left knee replacement 03/30/2017 Class 1 obesity due to exces s calories with serious comorbidity and body mass index (BMI) of 32.0 to 32.9 in adult 03/03/2017 Prediabetes 03/03/2017 Complete rotator cuff tear o r rupture of right shoulder, 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 01/19/2017 Shoulder pain, bilateral 12/08/2016 Impingement syndrome of left shoulder 12/08/2016 Impingement syndrome of right shoulder 7 Primary osteoarthritis of one knee, right 2016 Resolved Problems Problem Noted Date Diagnosed Date Resolved Date Recurrent major depression r esistant to treatment 07/16/2022 04/12/2023 Elevated serum creatinine 07/06/2022 Frequent falls 06/02/2022 07/06/2022 Prediabetes 08/29/2018 04/12/2023 Incomplete rotator cuff tear or rupture of right shoulder, 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 01/05/2017 06/21/2018 Chronic pain of left knee 11/27/2016 Primary osteoarthritis of left knee 11/27/2016 05/18/2017 Immunizations Name Administration Dates Next Due Covid-19 (Event [employer]) Dilution Required 01/09,07/17/2021,11/29/2020,11/06 Influenza Quad (Afluria/Fluz one) 0.5mL >=6mon Vial (SD-IIV4) 08/03/2016 Influenza Quad (Fluad) 0.5 m L >65Yrs (AIIV4) 07/07/2020 Influenza Quad (Flucelvax) 0 .5mL >6mon (ccIIV4) 06/24/2021 Influenza Trivalent (Fluzone High Dose) 0.7 mL (65yrs &>) 06/20/2024,08/23/2019,08/01/2018,07/31,08/03/2016,08/26/2015 Pneumococcal Conjugate PCV13 07/07/2020 Pneumococcal Polysaccharide PPSV23 07/07/2021 Shingrix Vaccine (Zoster Recombinant) 06/24/2021 Tdap 04/13/2022 Family History Medical History Relation Name Comments Cancer Brother Diabetes Father Heart disease Father Hypertension Father Arthritis Mother Hypertension Mother Arthritis Sister Cancer Sister Rheumatologic disease Sister Relation Name Status Comments Brother Alive Father Mother Sister Social History Tobacco Use Types Packs/Day Years Used Date Smoking Tobacco: Former Cigarettes 1 20 0 11/27/1956 - 11/27/1979 Smokeless Tobacco: Never Alcohol Use Standard Drinks/Week Comments No 0 (1 standard drink = 0.6 oz pur e alcohol) Overall Financial Resource Strain (CARDIA) Answe r Date Recorded How hard is it for you to pa y for the very basics like food, housing, medical care, and heating? Not very hard 06/07/2024 Hunger Vital Sign Answer Date Recorded Within the past 12 months, y ou worried that your food would run out before you got the money to buy more. Never true 06/07/20 24 Within the past 12 months, t he food you bought just didn't last and you didn't have money to get more. Never true 06/07/2024 PRAPARE - Transportation Answer Date Re corded In the past 12 months, has l ack of transportation kept you from medical appointments or from getting medications? No 05/12 In the past 12 months, has l ack of transportation kept you from meetings, work, or from getting things needed for daily living? No 06/07/2024 Housing Stability Vital Sign Answer Rashard e Recorded In the last 12 months, was t here a time when you were not able to pay the mortgage or rent on time? No 06/07/2024 In the last 12 months, how many places have you lived? 1 06/07/2024 In the last 12 months, was t here a time when you did not have a steady place to sleep or slept in a assisted (including now)? No 06/07/2024 Sex and Gender Information Value Date Recorded Sex Assigned at Female 08/07/2020 3:14 PM EDT Gender Identity Female 01/20/2023 1:43 PM EDT Sexual Orientation Straight 01/20/2023 1: 43 PM EDT Job Start Date Occupation Industry Not on file Not on file Not on file Last Filed Vital Signs Vital Sign Reading Time Taken Comments Blood Pressure 129/57 07/25/2024 6:04 AM EDT Pulse 73 07/25/2024 6:04 AM EDT Temperature 36.8 ??C (98.2 ??F) 07/25/2024 6:04 AM ED T Respiratory Rate 20 07/25/2024 6:04 AM EDT Oxygen Saturation 94% 07/25/2024 6:04 AM EDT Inhaled Oxygen Concentration - - Weight 77.1 kg (170 lb) 07/25/2024 3:00 AM EDT Height 152.4 cm (5') 07/25/2024 3:00 AM EDT Body Mass Index 33.2 07/25/2024 3:00 AM EDT Plan of Treatment Health Maintenance Due Date Last Done Comments Osteoporosis Screening (DEXA Scan) 01/14/2000 RSV Adult > 60+ Yrs or (1 - 1-dose 75+ series) 2010 BMI Counseling 04/26/2020 04/26/2019, 03/11, 02/01/2019 Shingrix-Zoster Vaccine (2 of 2) 08/19/2021 06/24/2021 Preventative Health Evaluation 07/06/2023 07/06/2022, 07/08/2021 Depression Screening 07/20/2024 07/20/2023, 07/06/2022, 07/08/2021 Fall Risk Assessment 07/20/2024 07/20/2023, 07/06/2022, 07/08/2021 DTap / Tdap / Td (2 - Td or Tdap) 04/13/2032 04/13/2022 Pneumococcal Vaccine Completed 07/07/2021, 07/07/20 20 COVID-19 Vaccine Completed 06/20/2024, , 07/17/2021, Additional history exists Influenza Vaccine Completed 06/20/2024, , 07/07/2020, Additional history exists Hepatitis B Vaccines Aged Out No long er eligible based on patient's age to complete this topic RSV Ped < 20 months Aged Out No longe r eligible based on patient's age to complete this topic Medical Devices Implanted Type Area Quill Picking Machine Operator Device Identifier Shelf Expiration Date Model / Serial / Lot Cement Simplex P Radiopaque Full Dose Bone 10 Pack - [id number] - [id number] Implanted:Qty: 1 on 03/15/2017 by [place] [facility] [place] Left: Knee [employer] 06/10/2019 6191-1-010 / / [id number] Cement Simplex P Radiopaque Full Dose Bone 10 Pack - [id number] - [id number] Implanted:Qty: 1 on 03/15/2017 by [place] [facility] [place] [facility] Left: Knee [employer] 06/10/2019 6191-1-010 / / [id number] Insert Triathlon 2 9mm Cruciate Retaining X3 Tibial Knee - [id number] - [id number] Implanted:Qty: 1 on 03/15/2017 by [place] [facility] [place] [facility] Left: Knee [employer] 11/10/2019 [id number] / / [id number] Component Triathlon 2 Cemented Cruciate Retaining Femoral - [id number] - [id number] Implanted:Qty: 1 on 03/15/2017 by David Andrews [place] [facility] [place] [facility] Left: Knee [employer] 06/20/2020 [id number] / / [id number] Baseplate Triathlon 2 Cemented Primary Tibial Knee - [id number] - [id number] Implanted:Qty: 1 on 03/15/2017 by David Andrews [place] [facility] [place] [facility] Left: Knee [employer] 10/22/2021 5520-[id number]-200 / / [id number] Procedures Procedure Name Priority Date/Time Associated Diagnosis Comments CULTURE, URINE, ROUTINE Routine 08/13/2024 5:03 AM EST from Last 3 Months Results * CULTURE, URINE, ROUTINE (08/13/2024 5:03 AM EST) CULTURE, URINE, ROUTINE SEE NOTE [facility] Comment: ??CULTURE, URINE, ROUTINE ?Micro Number: ?[id number] ??Test Status: ? Final ??Specimen Source: ?? Urine ??Specimen Quality: ??Adequate ??Result: ?Less than 10,000 CFU/mL of single Gram positive ? organism isolated. No further testing will be ? performed. If clinically indicated, recollection ? using a method to minimize contamination, with ? prompt transfer to Urine Culture Transport Tube, ? is recommended. NO COLLECTION DATE RECEIVED. WE HAVE USED THE DATE THE SPECIMEN WAS RECEIVED BY THIS LABORATORY THE COLLECTION DATE. IF THIS IS INCORRECT, PLEASE CONTACT CLIENT SERVICES. PHONE NUMBER: 08/11/2024 9:1 8 AM EDT Narrative Resulting Agency Comment Performing Organization Information: ?Site ID: [id number] ?Name: [facility] ?Address: [address] [place] [id number] ?Director: Enedelia Avery M.D. Lala Ruiz PA-C URINE ORDERABLES [facility] from Last 3 Months Advance Directives For more information, please contact: [phone] Documents on File Type Date Recorded Patient Tool Crib Supervisor Expl anation Advance Directive and Living Will 01/14/2017 9:09 AM Latest Code Status on File Code Status Date Activated Date Inactivated Comments DNR 01/20/2023 1:14 PM 01/21/2023 8:36 PM This code status was ascertained in the following way: discussion with patient and adult daughter at bedside. Code Status History Code Status Date Activated Date Inactivated Comments Full Code 03/15/2017 11:35 AM 03/17/2017 11:42 PM This code status was ascertained in the following way: per living will or healthcare instructions. Full Code 03/15/2017 7:30 AM 03/15/2017 11:35 AM This c ode status was ascertained in the following way: discussion with patient. Full Code 03/15/2017 7:26 AM 03/15/2017 7:27 AM This co de status was ascertained in the following way: discussion with patient and discussion with healthcare customer assistance representative. Care Teams Transcribing Machine Mechanic Relationship Specialty Start Date End Date Lala Ruiz PA-C PCP - General Wire Drawing Machine Operator 11/07/21
--- OUTSIDE RECORDS SUMMARY | 2024-11-08 17:02 | XMS_ITS | Continuity of Care Document ---
Author Organization [facility] [id number] Address [address] [place] [address] Assessment Encounter Date Assessment Date Assessment LastModified by Organization Details LastModified Time 10/18/2024 10/18/2024 [facility] Vaccines reviewed, recommend RSV and second Shingrix BMD ordered previously, will reorder and remind patient to schedule ASCVD risk followed by cardiology Dr. 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 ADR Rexulti for agitation, discontinued (previously on Risperdal 0.25 nightly as needed) Doing well on current medication regimen Continue mirtazapine 7.5 mg nightly Continue escitalopram 10 mg, 1 daily Continue bupropion XL 150 mg daily Reassess periodically Hypertension Continue amlodipine 5 daily Continue losartan 25 daily Continue metoprolol ER 25 mg twice daily Bilateral carotid artery disease Bifascicular block CAD by elevated coronary artery calcium score Remote history of thoracic aortic aneurysm repair Continue current blood pressure medication Continue aspirin 81 daily Continue rosuvastatin 10 daily Continue ongoing follow-up with cardiology Dr. Del Valle CKD [address] Epps 2023 No significant abnormality of kidneys on CT abdomen pelvis 2021 Normal renal ultrasound 10/2021 Intolerant to Farxiga 5 mg daily GERD Recurrent off PPI Continue omeprazole Check B12, magnesium periodically Hypothyroidism On levothyroxine 112 mcg daily Due for TSH, ordered Primary osteoarthritis of multiple joints Has seen orthopedics Acetaminophen as needed Asymptomatic microscopic hematuria Full evaluation in the past did not reveal a cause Reevaluate if gross hematuria [id number] Not available 10/23/2024 12:43:02 Plan of Treatment Reminders Order Date Submit Date Provider Last Modified By Organization Details Last Modified Time Details Appointments LAB WORK 2025 01:30P M Nurse Not available Not available Not available PHYSICAL 2025 01:15P M STEPHANIE Reynolds Not available Not available Not available Lab TSH, serum or plasma 2024 025 [facility], [address], [place], [address], 10/26/2024 04:53:39 vitamin D, 25-hydro xy, total, serum 2024 025 [facility], [address], [place], [address], 10/26/2024 04:53:40 vitamin B12, serum 2024 025 [facility], [address], [place], [address], 10/26/2024 04:53:39 magnesiu m, serum or plasma 2024 025 [facility], [address], [place], [address], 10/26/2024 04:53:36 CMP, serum or plasma 2024 025 [facility], [address], [place], [address], 10/26/2024 04:53:37 CBC 2024 025 [facility], [address], [place], [address], 10/26/2024 04:53:38 phosphor us, serum or plasma 2024 025 [facility], [address], [place], [address], 10/26/2024 04:53:37 lipid panel, serum 2024 025 [email or web address], [address], [place], [address], 10/26/2024 04:53:35 Referral None recorded . Procedures None recorded . Surgeries None recorded . Imaging None recorded . Medication Orders None recorded . Patient TargetsNo targets recorded. Patient InstructionsNo instructions recorded. Reason for Referral None Reported. Medical Equipment None Reported. Allergies Allergen ID Allergen Name Allergen Category Reaction Reaction Severity Criticality Documentation Date Start Date Code Code System Note Provider Name and Address Organization Details Recorded Time 3236 Product containin g penicilli n and antibioti c (product) medicatio n Not available Not available Not available 10/18/2024 95604 05 SNOMED Kellieharpal Cristobal [facility] 5 14:22:39 Medications Name Sig Start Date Stop Date Status Note LastModified by Organization Details LastModified Time dispill package dispill fee 10/18 completed Not Available Not Available Not Available fosfomycin tromethamin e 3 gram oral packet TAKE 3 G BY MOUTH FOR 1 DOSE 10/18 completed Not Available Not Available Not Available risperidone 0.25 mg tablet TAKE ONE TABLET BY MOUTH AT BEDTIME 10/18 completed Not Available Not Available Not Available amlodipine 5 mg tablet TAKE ONE TABLET BY MOUTH EVERY DAY active Not Available Not Available No t Available sulfamethox azole 800 mg-trimetho prim 160 mg tablet TAKE 1 TABLET BY MOUTH TWICE A DAY FOR 3 DAYS 10/18 completed Not Available Not Available Not Available omeprazole 40 mg capsule,del ayed release TAKE ONE CAPSULE BY MOUTH AT BEDTIME active Not Available Not Available No t Available aspirin 81 mg tablet,alfredo yed release TAKE ONE TABLET BY MOUTH EVERY DAY active Not Available Not Available No t Available benzonatate 100 mg capsule TAKE ONE CAPSULE BY MOUTH THREE TIMES DAILY NEEDED FOR COUGH 10/18 completed Not Available Not Available Not Available losartan 25 mg tablet TAKE ONE TABLET BY MOUTH TWICE DAILY TO protect kidneys AND blood pressure active Not Available Not Available No t Available docusate sodium 100 mg capsule TAKE ONE CAPSULE BY MOUTH AT BEDTIME active Not Available Not Available No t Available metoprolol succinate ER 25 mg tablet,exte nded release 24 hr TAKE ONE TABLET BY MOUTH TWICE DAILY active Not Available Not Available No t Available levofloxaci n 500 mg tablet TAKE 1 TABLET BY MOUTH EVERY DAY 10/18 completed Not Available Not Available Not Available ipratropium bromide 21 mcg (0.03 %) nasal spray SPRAY OR APPLY 2 SPRAYS INSIDE NOSE 3 (THREE) TIMES A DAY. 10/18 completed Not Available Not Available Not Available levothyroxi ne 112 mcg tablet TAKE ONE TABLET BY MOUTH EVERY DAY active Not Available Not Available No t Available cholecalcif davi (vitamin D3) 25 mcg (1,000 unit) capsule TAKE ONE CAPSULE BY MOUTH EVERY DAY active Not Available Not Available No t Available escitalopra m 10 mg tablet TAKE 1/2 TABLET BY MOUTH TWICE DAILY active Not Available Not Available No t Available Restasis 0.05 % eye drops in a dropperette INSTILL 1 DROP INTO BOTH EYES EVERY 12 HOURS active Not Available Not Available No t Available rosuvastati n 10 mg tablet TAKE ONE TABLET BY MOUTH EVERY DAY active Not Available Not Available No t Available bupropion HCl XL 150 mg 24 hr tablet, extended release TAKE ONE TABLET BY MOUTH EVERY MORNING active Not Available Not Available No t Available mirtazapine 7.5 mg tablet TAKE 1 TABLET BY MOUTH DAILY NEEDED. active Not Available Not Available No t Available nitrofurant oin monohydrate /macrocryst als 100 mg capsule TAKE ONE CAPSULE BY MOUTH TWICE DAILY FOR SEVEN DAYS 10/18 completed Not Available Not Available Not Available Rexulti 3 mg tablet 10/18 completed Not Available Not Available Not Available Rexulti 1 mg tablet take 0.5mg (1/2 tab) by mouth daily for 7 days, then 1mg (1 tab) daily for 7 days, then 2mg (2 tabs) daily 10/18 completed Not Available Not Available Not Available Rexulti 2 mg tablet TAKE ONE TABLET BY MOUTH EVERY DAY 10/18 completed Not Available Not Available Not Available Vitals Date Recorded Body weight Body mass index (BMI) Body height Heart rate Systolic blood pressure Diastolic blood pressure Provider Name and Address Organization Details Last Updated DateTime 5 10841.8 6 g 33 kg/m2 153.04 cm 62 /min 115 mm[Hg] 72 mm[Hg] [facility] 14:28:25 Social History None recorded. Functional Status None recorded. Mental Status None recorded. Family History Nothing Reported. Medical History No medical history recorded. Gynecological HistoryNo gynecological history recorded. Obstetrics History GPAL:G 0 P 0 0 0 0 Immunizations Vaccine Type Date Status Note Provider Nam e and Address Organization Details Recorded Time Respiratory syncytial virus (RSV) vaccine, unspecified 10/18/2024 completed Irene Greogry null, [facility] 10/18/2024 15:37:41 zoster recombinant 06/24/2021 completed Irene Gregory null, [facility] 10/25/2024 13:48:45 zoster recombinant 10/25/2024 completed Irene Gregory null, [facility] 10/25/2024 13:56:56 Past Encounters Encounter ID Performer Location Encounter Start Date Encounter Closed Date Diagnosis/Indication Diagnosis SNOMED-CT Code Diagnosis ICD10 Code Diagnosis Note [id number] STEPHANIE Reynolds [id number] [id number] [address] [place] [id number] 10/18/2024 14:17:29 10/18/2024 15:37:34 Recurrent major depression in remission 49484519 F33.40 Generalize d anxiety disorder 75043465 F41.1 Chronic insomnia 7029325 04 F51.04 Essential hypertension 05374918 I10 Carotid atherosclerosis 403980925 I65.29 Atheroscle rosis of coronary artery without angina pectoris 5972118592 32100 I25.10 Chronic ki dney disease stage 3 239008602 N18.30 Gastroesop hageal reflux disease without esophagitis 887007027 K21.9 Acquired hypothyroidism 549240111 E03.9 Degenerati ve joint disease involving multiple joints 135470343 M15.9 Body mass index 30+ - obesity 934223112 Z68.33 Long-term current use of proton pump inhibitor therapy 0575962136 43740422 Z79.899 Recurrent falls 49720457 2 R29.6 Health Concerns Section Related Observation LastModified by Organization Detai ls LastModified Time None Recorded Concern Status LastModified by Organization Details LastModified Time None Recorded Payers Encounter Date Sequence Insurance Name Policy Number Policy Vazquez Covered Member ID Vazquez Member ID Guarantor Name 10/18/2024 2 [place] Blessing Smyth Nikitashae [id number] Blessing Smyth Berny 10/18/2024 1 MEDICARE [place]: [place] Blessing Arrieta [id number] Blessing Arrieta Notes Date Note Type Note Provider Name and Address Organization Details Recorded Time 10/18/2024 text/html CPX Lives at home with her who has full-time in-home care due to advancing Parkinson's diseasePatient's daughter Supriya provides a lot of care for both of them Family history Brother metastatic bladder cancer STEPHANIE Reynolds [address] [place] [address], [place], [address], [facility] 10/23/2024 12:43:15 OBGyn Episode No OBEpisode recorded.
--- OUTSIDE RECORDS SUMMARY | 2024-11-08 17:02 | XMS_ITS | Encounter Summary ---
Author Organization [facility] Address [address] [place] [address] Care Team Providers Care Database Design Analyst Name Role Phone Lala Ruiz Primary Care Provider Encounter Details Date Type Department Care Team (Late st Contact Info) Description 07/15/2024 10:14 AM EDT Hospital Encounter TH HISTORIC ENCOUNTERS [facility]AST[facility] CONVERSION ONLY Jorge Higgins MD [address] [place] [address] Social History Tobacco Use Types Packs/Day Years [...] - Inhaled Oxygen Concentration - - Weight 75 kg (165 lb 5.5 oz) 07/12/2024 11:40 AM EDT Height 154.9 cm (5' 1 ) 10/15/2023 2:15 PM EST Body Mass Index 31.24 10/15/2023 2:15 PM EST documented in this encounter Progress Notes * Jorge Higgins MD - 07/15/2024 3:00 PM EDT Telemedicine visit This patient believes she has a case of diverticulitis she was seen in the emergency room on Wednesday after a 4-day history of left lower quadrant pains that are mild to moderate but worsening in pattern she was treated for cystitis and had essentially normal leonardo with Macrobid and it did not seem to help or harm her she continues to have some degree of cough that somewhat productive as well she has not had chest pain or shortness of breath or headache her appetite is fair her bowel pattern has been within normal overall. She would like to try an antibiotic to cover both of these issues Her CT scan showed diverticular disease but no definite abscess Recent labs reviewed medication intolerances and allergies reviewed as well Given her current symptomatology and her recent evaluation it would be reasonable to try her with Levaquin 500 mg daily for 7 days her calculated GFR is 43 she has no allergy to fluoroquinolones in the past. If she is not improving on this regimen we may need to do more testing and she may need to be seen in the office she agrees with this care plan and will proceed accordingly documented in this encounter Plan of Treatment Not on file documented as of this encounter Visit Diagnoses Not on filedocumented in this encounter Care Teams Database Design Analyst Relationship Specialty Start Date End Date Lala Ruiz PA PCP - General Guest Service Aide 11/07/21 documented as of this encounter
--- OUTSIDE RECORDS SUMMARY | 2024-11-08 17:02 | XMS_ITS ---
Author Name [facility] Organization Unknown Results Test Name/Text Value Interpretation Date Range Source Cholest SerPl-mCnc 139mg/dL Normal [id number] - 200 [facility] Cholest/HDLc SerPl 3.2(calc) Normal [id number] - 5 [facility] LDLc SerPl Calc-mCnc 69mg/dL(calc) Normal [id number] [facility] Trigl SerPl-mCnc 180mg/dL Above high normal [id number] - 150 [facility] NonHDLc SerPl-mCnc 95mg/dL(calc) Normal [id number] - 130 [facility] HDLc SerPl-mCnc 44mg/dL Below low normal [id number] - [facility] TSH SerPl-aCnc 0.5mIU/L Normal [id number] 0.4 - 4.5 [facility] Vit B12 SerPl-mCnc 268pg/mL Normal [id number] 200 - 1100 [facility] 25(OH)D3+25(OH)D2 SerPl-mCnc 42ng/mL Normal [id number] 30 - 100 [facility] Phosphate SerPl-mCnc 3.7mg/dL Normal [id number] 2.1 - 4.3 [facility] MCH RBC Qn Auto 30.1pg Normal [id number] 27 - 33 [facility] RDW RBC Auto-Rto 12.2% Normal [id number] 11 - 15 [facility] WBC # Bld Auto 7.1Thousand/uL Normal [id number] 3.8 - 1 0.8 [facility] MCHC RBC Auto-mCnc 32.4g/dL Normal [id number] 32 - 36 [facility] Platelet # Bld Auto 251Thousand/uL Normal [id number] 140 - 400 [facility] Hct VFr Bld Auto 37% Normal [id number] 35 - 45 [facility] Hgb Bld-mCnc 12g/dL Normal [id number] 11.7 - 15.5 [facility] MCV RBC Auto 92.7fL Normal [id number] 80 - 100 [facility] T PMV Bld Emmanuel-Alexander 10.8fL Normal [id number] 7.5 - 12.5 [facility] RBC # Bld Auto 3.99Million/uL Normal [id number] 3.8 - 5 .1 [facility] Magnesium SerPl-mCnc 2mg/dL Normal [id number] 1.5 - 2.5 [facility] Calcium SerPl-mCnc 9.6mg/dL Normal [id number] 8.6 - 10.4 [facility] Globulin Ser Calc-mCnc 2.1g/dL(calc) Normal [id number] 1.9 - 3.7 [facility] ALP SerPl-cCnc 65U/L Normal [id number] 37 - 153 [facility] ALT SerPl-cCnc 8U/L Normal [id number] 6 - 29 [facility] Chloride SerPl-sCnc 99mmol/L Normal [id number] 98 - 110 [facility] Potassium SerPl-sCnc 4.1mmol/L Normal [id number] 3.5 - 5.3 [facility] Albumin/Glob SerPl 2.1(calc) Normal [id number] 1 - 2.5 [facility] Bilirub SerPl-mCnc 0.5mg/dL Normal [id number] 0.2 - 1.2 [facility] Prot SerPl-mCnc 6.5g/dL Normal [id number] 6.1 - 8.1 [facility] Sodium SerPl-sCnc 138mmol/L Normal [id number] 135 - 146 [facility] BUN SerPl-mCnc 16mg/dL Normal [id number] 7 - 25 [facility] CO2 SerPl-sCnc 30mmol/L Normal [id number] 20 - 32 [facility] Albumin SerPl-mCnc 4.4g/dL Normal [id number] 3.6 - 5.1 [facility] Glucose SerPl-mCnc 87mg/dL Normal [id number] 65 - 139 [facility] eGFRcr SerPlBld CKD-EPI 1 45mL/min/1.73m2 Below low normal [id number] - [facility] AST SerPl-cCnc 16U/L Normal [id number] 10 - 35 [facility] Creat SerPl-mCnc 1.17mg/dL Above high normal [id number] 0. 6 - 0.95 [facility] BUN/Creat SerPl 14(calc) Normal [id number] 6 - 22 [facility] Bacteria Ur Cult SEE NOTE Normal [id number] [facility] SQUAMOUS NO./AREA URNS LPF 6/LPF Above high normal [id number] 0 - 5 [facility] RBC number/area UrnS Auto 8/HPF Above high normal [id number] 0 - 3 [facility] WBC number/area UrnS Auto 6/HPF Above high normal [id number] 0 - 5 [facility] Clarity Ur Refract.auto HAZY Normal [id number] [facility] Prot Ur Ql Strip.auto NEGATIVE Normal [id number] - [facility] Glucose Ur Ql Strip.auto NEGATIVE Normal [id number] - [facility] Nitrite Ur Ql Strip.auto NEGATIVE Normal [id number] - [facility] Hgb Ur Ql Strip.auto TRACE Abnormal [id number] - [facility] Ketones Ur Ql Strip.auto NEGATIVE Normal [id number] - [facility] Leukocyte esterase Ur Ql Strip.auto NEGATIVE Normal [id number] - [facility] Sp Gr Ur Strip.auto 1.01 Normal [id number] 1.005 - 1.03 [facility] pH Ur Strip.auto 6 Normal [id number] 4.5 - 8 [facility] Troponin I SerPl HS-mCnc 8ng/L Normal [id number] 0 - 14 [facility] LDH SERPL L TO P CCNC 182U/L Normal [id number] 125 - 220 [facility] AST SERPL CCNC 15U/L Normal [id number] 5 - 40 [facility] ALP SERPL-CCNC 57U/L Normal [id number] 34 - 104 [facility] ALT SERPL CCNC 6U/L Below low normal [id number] 7 - 5 2 [facility] LIPASE SERPL CCNC 12U/L Normal [id number] 11 - 82 [facility] CREAT SERPL MCNC 1mg/dL Normal [id number] 0.5 - 1 [facility] CALCIUM SERPL MCNC 9.6mg/dL Normal [id number] 8.4 - 10.2 [facility] SODIUM SERPL SCNC 137mmol/L Normal [id number] 135 - 145 [facility] ANION GAP SERPL SCNC 9mmol/L Normal [id number] 5 - 14 [facility] Glomerular filtration rate/1.73 sq M. predicted 54 Below low normal [id number] 60 - [facility] HCO3 SER SCNC 29mmol/L Normal [id number] 24 - 32 [facility] GLUCOSE SERPL MCNC 107mg/dL Normal [id number] 70 - 199 [facility] BUN SERPL MCNC 13mg/dL Normal [id number] 7 - 17 [facility] CHLORIDE SERPL SCNC 100mmol/L Normal [id number] 98 - 107 [facility] POTASSIUM SERPL SCNC 3.9mmol/L Normal [id number] 3.5 - 5.1 [facility] BILIRUB SERPL MCNC 0.6mg/dL Normal [id number] 0.3 - 1 [facility] BILIRUB DIRECT SERPL MCNC 0.2mg/dL Normal [id number] 0 - 0.2 [facility] AMYLASE SERPL CCNC 23U/L Below low normal [id number] 29 - 103 [facility] PLATELET NO. BLD AUTO 217K/uL Normal [id number] 150 - 450 [facility] RBC NO. BLD AUTO 3.73M/uL Below low normal [id number] 4.2 - 5.4 [facility] NUCLEATED RBC 0% Normal [id number] 0 - 1 [facility] LYMPHOCYTES NO. BLD AUTO 1.4K/uL Normal [id number] 1 - 3.2 [facility] EOSINOPHIL NO. BLD AUTO 0.1K/uL Normal [id number] 0 - 0.5 [facility] MCH RBC QN AUTO 30.3pg Normal [id number] 25 - 33 [facility] MCHC RBC AUTO MCNC 32.5g/dL Normal [id number] 32 - 36 [facility] MONOCYTES NFR BLD AUTO 5.8% Normal [id number] 2 - 12 [facility] IMMATURE GRANULOCYTE, ABSOLUTE 0.04k/uL Normal [id number] - 0.1 [facility] LYMPHOCYTES NFR BLD AUTO 18% Below low normal [id number] 20 - 48 [facility] EOSINOPHIL NFR BLD AUTO 1.6% Normal [id number] 0 - 6 [facility] HGB BLD MCNC 11.3g/dL Below low normal [id number] 12.5 - 16 [facility] NEUTROPHILS NO. BLD AUTO 5.9K/uL Normal [id number] 1.8 - 7.8 [facility] WBC NO. BLD AUTO 8K/uL Normal [id number] 4 - 10.5 [facility] BASOPHILS NFR BLD AUTO 0.8% Normal [id number] 0 - 2 [facility] MONOCYTES NO. BLD AUTO 0.5K/uL Normal [id number] 0 - 0.8 [facility] MCV RBC AUTO 93.3fL Normal [id number] 78 - 100 [facility] NE[facility] NFR BLD AUTO 73.3% Normal [id number] 44 - 74 [facility] IMMATURE GRANULOCYTE, PERCENT 0.5% Normal [id number] 0 - 1 [facility] BASOPHILS IN BLOOD BY AUTOMATED COUNT 0.1K/uL Normal [id number] 0 - 0.2 [facility] PMV BLD AUTO 9.6fL Normal [id number] 7.4 - 11.4 [facility] RDW RBC AUTO RTO 13.1% Normal [id number] 12.1 - 16.2 [facility] HCT VFR BLD AUTO 34.8% Below low normal [id number] 37 - 47 [facility] SPECIMEN SOURCE XXX URINE CLEAN CATCH Normal [id number] [facility] Clarity Ur Refract.auto CLEAR Normal [facility] Prot Ur Ql Strip.auto NEGATIVE Normal [id number] - [facility] Glucose Ur Ql Strip.auto NEGATIVE Normal [id number] - [facility] Nitrite Ur Ql Strip.auto NEGATIVE Normal [id number] - [facility] Hgb Ur Ql Strip.auto TRACE Abnormal [id number] - [facility] Ketones Ur Ql Strip.auto NEGATIVE Normal [id number] - [facility] Leukocyte esterase Ur Ql Strip.auto SMALL Abnormal [id number] - [facility] Sp Gr Ur Strip.auto 1.02 Normal [id number] 1.005 - 1.03 [facility] pH Ur Strip.auto 5.5 Normal [id number] 4.5 - 8 [facility] Bacteria Ur Ql Auto PRESENT Abnormal [id number] - [facility] SQUAMOUS NO./AREA URNS LPF 2/LPF Normal [id number] 0 - 5 [facility] RBC number/area UrnS Auto 2/HPF Normal [id number] 0 - 3 [facility] WBC number/area UrnS Auto 16/HPF Above high normal [id number] 0 - 5 [facility] BNP BLD MCNC 86pg/mL Normal [id number] 0 - 100 [facility] LIPASE SERPL CCNC 8U/L Below low normal [id number] 11 - 82 [facility] BILIRUB SERPL MCNC 0.6mg/dL Normal [id number] 0.3 - 1 [facility] BILIRUB DIRECT SERPL MCNC 0.1mg/dL Normal [id number] 0 - 0.2 [facility] LDH SERPL L TO P CCNC 167U/L Normal [id number] 125 - 220 [facility] AST SERPL CCNC 13U/L Normal [id number] 5 - 40 [facility] ALP SERPL-CCNC 51U/L Normal [id number] 34 - 104 [facility] ALT SERPL CCNC 6U/L Below low normal [id number] 7 - 5 2 [facility] AMYLASE SERPL CCNC 22U/L Below low normal [id number] 29 - 103 [facility] Troponin I SerPl HS-mCnc 6ng/L Normal [id number] 0 - 14 [facility] CREAT SERPL MCNC 1.2mg/dL Above high normal [id number] 0. 5 - 1 [facility] CALCIUM SERPL MCNC 9.3mg/dL Normal [id number] 8.4 - 10.2 [facility] SODIUM SERPL SCNC 138mmol/L Normal [id number] 135 - 145 [facility] ANION GAP SERPL SCNC 6mmol/L Normal [id number] 5 - 14 [facility] Glomerular filtration rate/1.73 sq M. predicted 43 Below low normal [id number] 60 - [facility] HCO3 SER SCNC 29mmol/L Normal [id number] 24 - 32 [facility] GLUCOSE SERPL MCNC 112mg/dL Normal [id number] 70 - 199 [facility] BUN SERPL MCNC 20mg/dL Above high normal [id number] 7 - 17 [facility] CHLORIDE SERPL SCNC 103mmol/L Normal [id number] 98 - 107 [facility] POTASSIUM SERPL SCNC 4.4mmol/L Normal [id number] 3.5 - 5.1 [facility] LACTATE SERPL SCNC 0.7mmol/L Normal [id number] 0.5 - 2 [facility] PLATELET NO. BLD AUTO 201K/uL Normal [id number] 150 - 450 [facility] RBC NO. BLD AUTO 3.68M/uL Below low normal [id number] 4.2 - 5.4 [facility] NUCLEATED RBC 0% Normal [id number] 0 - 1 [facility] LYMPHOCYTES NO. BLD AUTO 0.9K/uL Below low normal [id number] 1 - 3.2 [facility] EOSINOPHIL NO. BLD AUTO 0.1K/uL Normal [id number] 0 - 0.5 [facility] MCH RBC QN AUTO 29.9pg Normal [id number] 25 - 33 C [facility] MCHC RBC AUTO MCNC 31.3g/dL Below low normal [id number] 32 - 36 [facility] MONOCYTES NFR BLD AUTO 6.8% Normal [id number] 2 - 12 [facility] IMMATURE GRANULOCYTE, ABSOLUTE 0.02k/uL Normal [id number] - 0.1 [facility] LYMPHOCYTES NFR BLD AUTO 11.2% Below low normal [id number] 20 - 48 [facility] EOSINOPHIL NFR BLD AUTO 1.1% Normal [id number] 0 - 6 [facility] HGB BLD MCNC 11g/dL Below low normal [id number] 12.5 - 16 [facility] NEUTROPHILS NO. BLD AUTO 6.3K/uL Normal [id number] 1.8 - 7.8 [facility] WBC NO. BLD AUTO 7.8K/uL Normal [id number] 4 - 10.5 [facility] BASOPHILS NFR BLD AUTO 0.5% Normal [id number] 0 - 2 [facility] MONOCYTES NO. BLD AUTO 0.5K/uL Normal [id number] 0 - 0.8 [facility] MCV RBC AUTO 95.7fL Normal [id number] 78 - 100 [facility] NEUTR[facility]IL[facility] NFR BLD AUTO 80.1% Above high normal [id number] 44 - 74 [facility] IMMATURE GRANULOCYTE, PERCENT 0.3% Normal 0 - 1 [facility] BASOPHILS IN BLOOD BY AUTOMATED COUNT 0K/uL Normal 0 - 0.2 [facility] PMV BLD AUTO 10.3fL Normal 7.4 - 11.4 [facility] RDW RBC AUTO RTO 13.2% Normal 12.1 - 16.2 [facility] HCT VFR BLD AUTO 35.2% Below low normal 37 - 47 [facility] SPECIMEN SOURCE XXX URINE CLEAN CATCH Normal [facility] Bacteria Ur Cult SEE NOTE Abnormal [id number] [facility] CREAT SERPL MCNC 1.5mg/dL Above high normal [id number] 0. 5 - 1 [facility] CALCIUM SERPL MCNC 9.2mg/dL Normal [id number] 8.4 - 10.2 [facility] SODIUM SERPL SCNC 136mmol/L Normal [id number] 135 - 145 [facility] ANION GAP SERPL SCNC 7mmol/L Normal [id number] 5 - 14 [facility] Glomerular filtration rate/1.73 sq M. predicted 33 Below low normal [id number] 60 - [facility] HCO3 SER SCNC 28mmol/L Normal [id number] 24 - 32 [facility] GLUCOSE SERPL MCNC 115mg/dL Normal [id number] 70 - 199 [facility] BUN SERPL MCNC 24mg/dL Above high normal [id number] 7 - 17 [facility] CHLORIDE SERPL SCNC 101mmol/L Normal [id number] 98 - 107 [facility] POTASSIUM SERPL SCNC 4.3mmol/L Normal [id number] 3.5 - 5.1 [facility] CREAT SERPL MCNC 1.6mg/dL Above high normal [id number] 0. 5 - 1 [facility] CALCIUM SERPL MCNC 9mg/dL Normal [id number] 8.4 - 10.2 [facility] SODIUM SERPL SCNC 137mmol/L Normal [id number] 135 - 145 [facility] ANION GAP SERPL SCNC 6mmol/L Normal [id number] 5 - 14 [facility] Glomerular filtration rate/1.73 sq M. predicted 31 Below low normal [id number] 60 - [facility] HCO3 SER SCNC 27mmol/L Normal 24 - 32 [facility] GLUCOSE SERPL MCNC 123mg/dL Normal 70 - 199 [facility] BUN SERPL MCNC 29mg/dL Above high normal [id number] 7 - 17 [facility] CHLORIDE SERPL SCNC 104mmol/L Normal [id number] 98 - 107 [facility] POTASSIUM SERPL SCNC 4.3mmol/L Normal 3.5 - 5.1 [facility] CREAT SERPL MCNC 1.5mg/dL Above high normal [id number] 0. 5 - 1 [facility] CALCIUM SERPL MCNC 9mg/dL Normal 8.4 - 10.2 [facility] SODIUM SERPL SCNC 133mmol/L Below low normal 13 5 - 145 [facility] ANION GAP SERPL SCNC 6mmol/L Normal 5 - 14 [facility] Glomerular filtration rate/1.73 sq M. predicted 33 Below low normal 60 - [facility] HCO3 SER SCNC 26mmol/L Normal 24 - 32 [facility] GLUCOSE SERPL MCNC 104mg/dL Normal 70 - 199 [facility] BUN SERPL MCNC 30mg/dL Above high normal [id number] 7 - 17 [facility] CHLORIDE SERPL SCNC 101mmol/L Normal 98 - 107 [facility] POTASSIUM SERPL SCNC 5.7mmol/L Above high normal [id number] 3.5 - 5.1 [facility] Clarity Ur Refract.auto CLEAR Normal [facility] Prot Ur Ql Strip.auto NEGATIVE Normal [id number] - [facility] Glucose Ur Ql Strip.auto NEGATIVE Normal - [facility] Nitrite Ur Ql Strip.auto NEGATIVE Normal - [facility] Hgb Ur Ql Strip.auto TRACE Abnormal - [facility] Ketones Ur Ql Strip.auto NEGATIVE Normal [id number] - [facility] Leukocyte esterase Ur Ql Strip.auto NEGATIVE Normal - [facility] Sp Gr Ur Strip.auto 1.025 Normal 1.005 - 1.03 [facility] pH Ur Strip.auto 6 Normal 4.5 - 8 [facility] SQUAMOUS NO./AREA URNS LPF 3/LPF Normal 0 - 5 [facility] RBC number/area UrnS Auto 5/HPF Above high normal 0 - 3 [facility] WBC number/area UrnS Auto 2/HPF Normal 0 - 5 [facility] Service [facility] XXX-Imp Cepheid GeneXpert (RT-PCR) [facility] Normal [facility] FLUBV RNA Nph Ql ALTON+non-probe NEGATIVE Normal [facility] RSV RNA Nph Ql ALTON+non-probe NEGATIVE Normal [facility] FLUAV RNA Nph Ql ALTON+non-probe NEGATIVE Normal [facility] SPECIMEN SOURCE XXX URINE CLEAN CATCH Normal [facility] Troponin I SerPl HS-mCnc 5ng/L Normal 0 - 14 [facility] PROT SERPL MCNC 7g/dL Normal 6.4 - 8.5 [facility] BILIRUB SERPL MCNC 0.4mg/dL Normal 0.3 - 1 [facility] ALBUMIN/GLOB SERPL MRTO 1.7 Normal [facility] AST SERPL CCNC 19U/L Normal 5 - 40 [facility] ALBUMIN SERPL BCG MCNC 4.4g/dL Normal 3.5 - 5 [facility] ALP SERPL-CCNC 60U/L Normal 34 - 104 [facility] ALT SERPL CCNC 10U/L Normal 7 - 52 [facility] BILIRUB DIRECT SERPL MCNC 0.1mg/dL Normal 0 - 0.2 [facility] MAGNESIUM SERPL MCNC 2.2mg/dL Normal 1.7 - 2.8 [facility] CREAT SERPL MCNC 1.6mg/dL Above high normal 0. 5 - 1 [facility] CALCIUM SERPL MCNC 9.4mg/dL Normal 8.4 - 10.2 [facility] SODIUM SERPL SCNC 134mmol/L Below low normal [id number] 13 5 - 145 [facility] ANION GAP SERPL SCNC 8mmol/L Normal 5 - 14 [facility] Glomerular filtration rate/1.73 sq M. predicted 31 Below low normal [id number] 60 - [facility] HCO3 SER SCNC 28mmol/L Normal 24 - 32 [facility] GLUCOSE SERPL MCNC 91mg/dL Normal 70 - 199 [facility] BUN SERPL MCNC 31mg/dL Above high normal 7 - 17 [facility] CHLORIDE SERPL SCNC 99mmol/L Normal 98 - 107 [facility] POTASSIUM SERPL SCNC 4.7mmol/L Normal 3.5 - 5.1 [facility] APTT TIME PPP 30sec Normal [id number] 25 - 37 [facility] PT TIME PPP 11.2sec Normal 10.5 - 13.3 [facility] INR PPP 0.9 Normal 0.8 - 1.1 [facility] PLATELET NO. BLD AUTO 228K/uL Normal [id number] 150 - 450 [facility] RBC NO. BLD AUTO 3.62M/uL Below low normal [id number] 4.2 - 5.4 [facility] NUCLEATED RBC 0% Normal 0 - 1 [facility] LYMPHOCYTES NO. BLD AUTO 0.9K/uL Below low normal [id number] 1 - 3.2 [facility] EOSINOPHIL NO. BLD AUTO 0.1K/uL Normal [id number] 0 - 0.5 [facility] MCH RBC QN AUTO 30.7pg Normal [id number] 25 - 33 [facility]C RBC AUTO MCNC 31.9g/dL Below low normal [id number] 32 - 36 [facility] MONOCYTES NFR BLD AUTO 5.1% Normal 2 - 12 [facility] IMMATURE GRANULOCYTE, ABSOLUTE 0.01k/uL Normal [id number] - 0.1 [facility] LYMPHOCYTES NFR BLD AUTO 13.6% Below low normal [id number] 20 - 48 [facility] EOSINOPHIL NFR BLD AUTO 1.6% Normal 0 - 6 [facility] HGB BLD MCNC 11.1g/dL Below low normal 12.5 - 16 [facility] NEUTROPHILS NO. BLD AUTO 5K/uL Normal 1.8 - 7.8 [facility] WBC NO. BLD AUTO 6.3K/uL Normal 4 - 10.5 [facility] BASOPHILS NFR BLD AUTO 0.8% Normal 0 - 2 [facility] MONOCYTES NO. BLD AUTO 0.3K/uL Normal 0 - 0.8 [facility] MCV RBC AUTO 96.1fL Normal 78 - 100 [facility] NE[facility] NFR BLD AUTO 78.7% Above high normal 44 - 74 [facility] IMMATURE GRANULOCYTE, PERCENT 0.2% Normal 0 - 1 [facility] BASOPHILS IN BLOOD BY AUTOMATED COUNT 0.1K/uL Normal 0 - 0.2 [facility] PMV BLD AUTO 10.2fL Normal 7.4 - 11.4 [facility] RDW RBC AUTO RTO 13.2% Normal 12.1 - 16.2 [facility] HCT VFR BLD AUTO 34.8% Below low normal 37 - 47 [facility] LACTATE SERPL SCNC 1.2mmol/L Normal 0.5 - 2 [facility] SPECIMEN SOURCE XXX NASOPHARYNGEAL Normal [id number] [facility] History of Medication Use Medication Directions Dispensed Refills Start Date End Date Status benzonatate 100 mg capsule TAKE ONE CAPSULE BY MOUTH THREE TIMES DAILY NEEDED FOR COUGH 025 completed amLODIPine (NORVASC) tablet 5 mg Take 1 tablet (5 mg total) by mouth daily. 05/07/20 22 active levothyroxine (SYNTHROID) tablet 112 mcg TAKE ONE TABLET BY MOUTH EVERY DAY 04/04/20 24 active OMEprazole (PriLOSEC) 40 MG capsule Take 1 capsule (40 mg total) by mouth every morning before breakfast. active fosfomycin tromethamine 3 gram oral packet TAKE 3 G BY MOUTH FOR 1 DOSE 025 completed buPROPion (WELLBUTRIN XL) 150 MG 24 hr tablet TAKE ONE TABLET BY MOUTH EVERY MORNING 02/10/20 24 active losartan 25 mg tablet TAKE ONE TABLET BY MOUTH TWICE DAILY TO protect kidneys AND blood pressure active duloxetineTakeNo jn e recordedNo form recordedNo frequency recordedNo route recordedNo set duration recordedNo set duration amount recordedactiveNo dosage strength recordedNo dosage strength units of measure recorded active losartan (COZAAR) tablet 25 mg TAKE ONE TABLET BY MOUTH TWICE DAILY TO protect kidneys AND blood pressure 05/21/20 24 active metoprolol succinate (TOPROL-XL) 24 hr tablet 25 mg TAKE ONE TABLET BY MOUTH TWICE DAILY 11/08/19 24 active metoPROLOL SUCCINATE (TOPROL-XL) 25 MG 24 hr tablet Take 0.5 tablets (12.5 mg total) by mouth daily. active escitalopram (LEXAPRO) 10 MG tablet Take 0.5 tablets (5 mg total) by mouth 2 times a day. active cholecalciferol (vitamin D3) 25 mcg (1,000 unit) capsule TAKE ONE CAPSULE BY MOUTH EVERY DAY active ipratropium (ATROVENT) 0.03 % nasal spray 2 sprays into each nostril 3 (three) times a day. 024 aborted sulfamethoxazole 800 mg-trimethoprim 160 mg tablet TAKE 1 TABLET BY MOUTH TWICE A DAY FOR 3 DAYS 025 completed acetaminophen (TYLENOL) 325 MG tablet Take 2 tablets (650 mg total) by mouth every 8 (eight) hours as needed for pain. active Rexulti 3 mg tablet 025 completed sodium chloride 0.9% bolus (NS) 500 mL 500 mL, Intravenous, at 1,000 mL/hr, Once, On Wed07/12/24 at 1400, For 1 dose 07/12/20 24 024 completed Rexulti 1 mg tablet take 0.5mg (1/2 tab) by mouth daily for 7 days, then 1mg (1 tab) daily for 7 days, then 2mg (2 tabs) daily 025 completed aspirin 81 MG EC tablet Take 1 tablet (81 mg total) by mouth daily. 07/21/20 active escitalopram (LEXAPRO) tablet 10 mg TAKE 1/2 TABLET BY MOUTH TWICE DAILY 05/21/20 24 active ipratropium bromide 21 mcg (0.03 %) nasal spray SPRAY OR APPLY 2 SPRAYS INSIDE NOSE 3 (THREE) TIMES A DAY. 025 completed meclizineTakeNo date recordedNo form recordedNo frequency recordedNo route recordedNo set duration recordedNo set duration amount recordedactiveNo dosage strength recordedNo dosage strength units of measure recorded active levothyroxine 112 mcg tablet TAKE ONE TABLET BY MOUTH EVERY DAY active rosuvastatinTakeNo date recordedNo form recordedNo frequency recordedNo route recordedNo set duration recordedNo set duration amount recordedactiveNo dosage strength recordedNo dosage strength units of measure recorded active CentrumTakeNo date recordedNo form recordedNo frequency recordedNo route recordedNo set duration recordedNo set duration amount recordedactiveNo dosage strength recordedNo dosage strength units of measure recorded active TYLENOL 10/13/19 22 active rosuvastatin 10 mg tablet TAKE ONE TABLET BY MOUTH EVERY DAY active Aspirin Low DoseTake No date recordedNo form recordedNo frequency recordedNo route recordedNo set duration recordedNo set duration amount recordedactiveNo dosage strength recordedNo dosage strength units of measure recorded active cholecalciferol (CHOLECALCIFEROL) 25 MCG (1000 UT) tablet Take 1 tablet (1,000 Units total) by mouth daily. active dispill package dispill fee 025 completed omeprazole (PriLOSEC) 40 MG capsule TAKE ONE CAPSULE BY MOUTH AT BEDTIME 01/17/20 24 active losartan (COZAAR) 25 MG tablet Take 1 tablet (25 mg total) by mouth 2 (two) times a day. active brexpiprazole (REXULTI) 1 MG tablet Take 1 tablet (1 mg total) by mouth daily. 0.5 mg daily for 7 days, then 1 mg daily for 7 days, then 2mg daily for 7 days active ketoconazole (NIZORAL) 2 % cream Apply topically 2 (two) times a day. To area under breasts as needed 01/05/20 23 active amlodipine 5 mg tablet TAKE ONE TABLET BY MOUTH EVERY DAY active Multiple Vitamins-Minerals (CENTRUM SILVER PO) Take 1 tablet by mouth daily. 024 active Allergies Allergen Reaction Severity Comment Documented Date Source Statu s [facility] Problems Problem Status Onset Date Problem Type Date of Resolution Source Acquired hypothyroidism active 2019-04-26 ProblemAct [facility] Primary osteoarthritis of one knee, right active 2016-11-27 ProblemAct [facility] Hammer toe active 2021-10-13 ProblemAct [facility] Pain in right toe(s) active 2024-09-20 EncounterDiagnosis Act [facility] Pain in left toe(s) active 2024-09-[address] [facility] Major depressive disorder, single episode, unspecified active 2020-08-02 ProblemAct [facility] Essential (primary) hypertension active [facility] Acute sinusitis, unspecified active 2023-08-08 ProblemAct [facility] Hyperlipidemia, unspecified active [facility] Mixed dyslipidemia active 2018-08-29 ProblemAct [facility] Trigger finger, right index finger active 2017-12-27 ProblemAct [facility] UTI (urinary tract infection) active EncounterDiagnosisAct [facility] Stage 3b chronic kidney disease active 2024-03-23 ProblemAct [facility] Recurrent major depressive disorder, in full remission active 2021-10-20 ProblemAct [facility] Class 1 obesity due to excess calories with serious comorbidity and body mass index (BMI) of 32.0 to 32.9 in adult active 2017-03-03 ProblemAct [facility] Stage 3a chronic kidney disease active 2022-08-24 ProblemAct [facility] Dizziness active 2022-06-02 ProblemAct [facility] Trigger finger, right middle finger active 2017-12-27 ProblemAct [facility] Prediabetes active 2017-03-03 ProblemAct [facility] H Essential hypertension active 2023-09-06 ProblemAct [facility] Gastroenteritis active 2023-01-[address] [facility] 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, 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 active 2017-01-19 ProblemAct [facility] 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 ProblemAct [facility] Elevated coronary artery calcium score active 2018-08-29 ProblemAct [facility] Shoulder pain, bilateral active 2016-12-08 ProblemAct [facility] Cognitive decline active EncounterDiagnosisAct [facility] Tinea unguium, onychomycosis active 2024-09-20 EncounterDiagnosisAct ENS_P ODCRCT Impingement syndrome of right shoulder active 2016-12-08 ProblemAct [facility] Normochromic normocytic anemia active 2022-07-06 ProblemAct [facility] Impingement syndrome of left shoulder active 2016-12-08 ProblemAct [facility] Immunizations Vaccine Date Source Lot Number Status Respiratory syncytial virus (RSV) vaccine, unspecified 10/18/2024 CT_MICHELLE completed Tdap 04/13/2022 [facility] [id number] completed Influenza Quad (Fluad) 0.5 mL >65Yrs (AIIV4) 07/07/2020 [facility] [id number] completed Influenza Trivalent (Fluzone High Dose) 0.7 mL (65yrs &>) 07/31/2017 [facility] [id number] completed Covid-19 (Pfizer) Dilution Required 11/29/2020 [facility] [id number] completed Covid-19 (Pfizer) Dilution Required 01/23/2022 [facility] [id number] completed Pneumococcal Conjugate PCV13 07/07/2020 [facility] [id number] completed Covid-19 (Pfizer) Dilution Required 07/17/2021 [facility] [id number] completed Influenza Trivalent (Fluzone High Dose) 0.7 mL (65yrs &>) 08/03/2016 [facility] [id number] completed Covid-19 (Pfizer) Dilution Required 11/06/2020 [facility] [id number] completed Influenza Trivalent (Fluzone High Dose) 0.7 mL (65yrs &>) 08/26/2015 [facility] [id number] completed Influenza Quad (Flucelvax) 0 .5mL >6mon (ccIIV4) 06/24/2021 [facility] [id number] completed Influenza Trivalent (Fluzone High Dose) 0.7 mL (65yrs &>) 08/23/2019 [facility] [id number] completed Pneumococcal Polysaccharide PPSV23 07/07/2021 [facility] completed Influenza Trivalent (Fluzone High Dose) 0.7 mL (65yrs &>) 08/01/2018 [facility] [id number] completed Influenza Quad (Afluria/Fluz one) 0.5mL >=6mon Vial (SD-IIV4) 08/03/2016 [facility] [id number] completed Influenza Trivalent (Fluzone High Dose) 0.7 mL (65yrs &>) 06/20/2024 [facility] [id number] completed Shingrix Vaccine (Zoster Recombinant) 06/24/2021 [facility] [id number] completed
--- OUTSIDE RECORDS SUMMARY | 2024-11-08 17:02 | XMS_ITS | Data Portability ---
Author Organization [place] - [employer], auto[employer] - [facility] Address [address] [place] [address] Assessment Encounter Date Assessment Date Assessment LastModified [...] reveal a cause Reevaluate if gross hematuria Not available 10/23/2024 12:43:02 Plan of Treatment Reminders Order Date Submit Date Provider Last Modified By Organization Details Last Modified Time Details Appointments LAB WORK 2025 01:30P M SMA Nurse Not available Not available Not available PHYSICAL 2025 01:15P M STEPHANIE Reynolds Not available Not available Not available Lab TSH, serum or plasma 2024 025 [facility], [address], [place], [address], 10/26/2024 04:53:39 vitamin D, 25-hydro xy, total, serum 2024 025 [facility], [address], [place], [address], 10/26/2024 04:53:40 vitamin B12, serum 2024 025 [facility], [address], [place], [address], 10/26/2024 04:53:39 magnesiu m, serum or plasma 2024 025 [facility], [address], [place], [address], 10/26/2024 04:53:36 CMP, serum or plasma 2024 025 [facility], [address], [place], [address], 10/26/2024 04:53:37 CBC 2024 025 [facility], [address], [place], [address], 10/26/2024 04:53:38 phosphor us, serum or plasma 2024 025 [facility], [address], [place], [address], 10/26/2024 04:53:37 lipid panel, serum 2024 025 [facility], [address], [place], [address], 10/26/2024 04:53:35 Referral None recorded . Procedures None recorded . Surgeries None recorded . Imaging None recorded . Medication Orders None recorded . Patient TargetsNo targets recorded. Patient InstructionsNo instructions recorded. Reason for Referral None Reported. Results Created Date Observation Date Name Description Value Unit Range Abnormal Flag Note LastModifiedBy Organization Detail LastModifiedTime 08/13/20 24 08/13/2024 CULTU RE, URINE , ROUTI NE culture, urine, routine SEE NOTE CULTU RE, URINE , ROUTI NE Micro Numbe r: [id number] Test Statu s: Final Speci men Sourc e: Urine Speci men Quali ty: Adequ ate Resul t: Less than 10,00 0 CFU/m L of singl e Gram posit cheryl organ ism isola ignacia. No furth er testi ng will be perfo rmed. If clini bird indic ated, recol lecti on using a metho d to minim ize conta minat ion, with promp t trans andres to Urine Cultu re Trans port Tube, is recom claudine d. NO COLLE CTION DATE RECEI SHARA. WE HAVE USED THE DATE THE SPECI MEN WAS RECEI SHARA BY THIS LABOR ATORY THE COLLE CTION DATE. IF THIS IS INCOR RECT, PLEAS E CONTA CT CLIEN T SERVI YOON. PHONE NUMBE R: [phone] Not Available [facility] [address], [place], [address], 08/13/2024 10:07:07 08/10/2008/10/2024 urina lysis , dipst ick Leukocytes Negati ve Not Available [id number]_rht_ pc [address], [address], 08/10/2024 15:58:09 08/10/2008/10/2024 urina lysis , dipst ick Nitrite negati ve Not Available [id number]_qye_ pc p [address] [place] [address], [phone], 08/10/2024 15:58:09 08/10/2008/10/2024 urina lysis , dipst ick Protein Negati ve Not Available Zdp604_vav_ pc p [address] [place] [address], [phone], 08/10/2024 15:58:09 08/10/2008/10/2024 urina lysis , dipst ick pH 6.0 Not Available [id number]_olm _pc p [address] [place] [address], , 08/10/2024 15:58:09 08/10/2008/10/2024 urina lysis , dipst ick Blood Small Not Available [id number]_exz _pc p [address] [place] [address], , 08/10/2024 15:58:09 08/10/20 24 08/10/2024 urina lysis , dipst ick Specific [place] 1.015 Not Available [id number] _sma_pc p [address] [place] [address], [phone], 08/10/2024 15:58:09 08/10/20 24 08/10/2024 urina lysis , dipst ick Ketone Negati ve Not Available [id number]_mgc_ pc p [address] [place] [address], [phone], 08/10/2024 15:58:09 08/10/2008/10/2024 urina lysis , dipst ick Bilirubin Negati ve Not Available Skr689_nho_ pc p [address] [place] [address], , 08/10/2024 15:58:09 08/10/20 24 08/10/2024 urina lysis , dipst ick Glucose Negati ve Not Available Klv070_qzi_ pc p [address] [place], [address], 08/10/2024 15:58:09 08/10/20 24 08/10/2024 urina lysis , dipst ick Color Dark Yellow Not Available Xgw130_yie_ pc p [address] [place], [address], 08/10/2024 15:58:09 10/25/19 25 10/26/2024 LIPID PANEL WITH REFLE X TO DIREC T LDL cholesterol, total 139 mg/dL <200 normal Not Available [facility] [address], [place], [address], 10/26/2024 04:53:35 10/25/19 25 10/26/2024 LIPID PANEL WITH REFLE X TO DIREC T LDL HDL cholesterol 44 mg/dL > or = 50 low Not Available [facility] [place] [facility] [address], [place], [address], 10/26/2024 04:53:35 10/25/19 25 10/26/2024 LIPID PANEL WITH REFLE X TO DIREC T LDL triglyceride s 180 mg/dL <150 high Not Available [facility] [place] [facility] [address], [place], [address], 10/26/2024 04:53:35 10/25/19 25 10/26/2024 LIPID PANEL WITH REFLE X TO DIREC T LDL LDL-choleste rol 69 mg/dL _(rtacy c) normal Refer ence range : <100 Cecelia able range <100 mg/dL for prima ry preve ntion ; <70 mg/dL for patie nts with CHD or diabe tic patie nts with > or = 2 CHD risk facto rs. LDL-C is now calcu lated using the Toña n-Hop kins calcu latio n, which is a valid ated novel metho tori bernal r accur acy than the Fried franco equat ion in the estim ation of LDL-C . Toña n SS et al. ANGELA. 2013; 310(1 9): 2061- 2068 (http ://ed soleati on.[employer]. com/f aq/FA Q164) Not Available [facility] [place] [facility] [address], [place], [address], 10/26/2024 04:53:35 10/25/1910/26/2024 LIPID PANEL WITH REFLE X TO DIREC T LDL chol/HDLC ratio 3.2 (calc ) <5.0 normal Not Available [facility] [place] [facility] [address], [place], [address], 10/26/2024 04:53:35 10/25/1910/26/2024 LIPID PANEL WITH REFLE X TO DIREC T LDL non HDL cholesterol 95 mg/dL _(tracy c) <130 normal For patie nts with diabe efren plus 1 major ASCVD risk facto r, treat ing to a non-H DL-C goal of <100 mg/dL (LDL- C of <70 mg/dL ) is consi gurmeet narayanan n. Not Available [facility] [place] [facility] [address], [place], [address], 10/26/2024 04:53:35 10/25/19 25 10/26/2024 MAGNE SIUM magnesium 2.0 mg/dL 1.5-2. 5 normal Not Available [facility] [place] [address], [place], [address], 10/26/2024 04:53:36 10/25/19 25 10/26/2024 PHOSP HATE ( PHOSP HORUS ) phosphate ( phosphorus) 3.7 mg/dL 2.1-4. 3 normal Not Available [facility] [address], [place], [address], 10/26/2024 04:53:37 10/25/19 25 10/26/2024 COMPR EHENS CHERYL METAB OLIC PANEL glucose 87 mg/dL 65-139 normal Non-f astin g refer ence inter chau Not Available [facility] [address], [place], [address], 10/26/2024 04:53:37 10/25/19 25 10/26/2024 COMPR EHENS CHERYL METAB OLIC PANEL urea nitrogen (BUN) 16 mg/dL 7-25 normal Not Available [facility] [address], [place], [address], 10/26/2024 04:53:37 10/25/19 25 10/26/2024 COMPR EHENS CHERYL METAB OLIC PANEL creatinine 1.17 mg/dL 0.60-0 .95 high Not Available [facility] [address], [place], [address], 10/26/2024 04:53:37 10/25/19 25 10/26/2024 COMPR EHENS CHERYL METAB OLIC PANEL eGFR 45 mL/mi n/1.7 3m2 > or = 60 low Not Available [facility] [address], [place], [address], 10/26/2024 04:53:37 10/25/19 25 10/26/2024 COMPR EHENS CHERYL METAB OLIC PANEL BUN/creatini ne ratio 14 (calc ) 6-22 normal Not Available [facility] [address], [place], [address], 10/26/2024 04:53:37 10/25/19 25 10/26/2024 COMPR EHENS CHERYL METAB OLIC PANEL sodium 138 mmol/ L 135-14 6 normal Not Available [facility] [address], [place], [address], 10/26/2024 04:53:37 10/25/19 25 10/26/2024 COMPR EHENS CHERYL METAB OLIC PANEL potassium 4.1 mmol/ L 3.5-5. 3 normal Not Available [facility] [place] [facility] [address], [place], [address], 10/26/2024 04:53:37 10/25/19 25 10/26/2024 COMPR EHENS CHERYL METAB OLIC PANEL chloride 99 mmol/ L 98-110 normal Not Available [facility] [address], [place], [address], 10/26/2024 04:53:37 10/25/19 25 10/26/2024 COMPR EHENS CHERYL METAB OLIC PANEL carbon dioxide 30 mmol/ L 20-32 normal Not Available [facility] [place] [facility] [address], [place], [address], 10/26/2024 04:53:37 10/25/19 25 10/26/2024 COMPR EHENS CHERYL METAB OLIC PANEL calcium 9.6 mg/dL 8.6-10 .4 normal Not Available [facility] [address], [place], [address], 10/26/2024 04:53:37 10/25/19 25 10/26/2024 COMPR EHENS CHERYL METAB OLIC PANEL protein, total 6.5 g/dL 6.1-8. 1 normal Not Available [facility] [address], [place], [address], 10/26/2024 04:53:37 10/25/19 25 10/26/2024 COMPR EHENS CHERYL METAB OLIC PANEL albumin 4.4 g/dL 3.6-5. 1 normal Not Available [facility] [address], [place], [address], 10/26/2024 04:53:37 10/25/19 25 10/26/2024 COMPR EHENS CHERYL METAB OLIC PANEL globulin 2.1 g/dL_ (calc ) 1.9-3. 7 normal Not Available [facility] [address], [place], [address], 10/26/2024 04:53:37 10/25/19 25 10/26/2024 COMPR EHENS CHERYL METAB OLIC PANEL albumin/glob ulin ratio 2.1 (calc ) 1.0-2. 5 normal Not Available [facility] [address], [place], [address], 10/26/2024 04:53:37 10/25/19 25 10/26/2024 COMPR EHENS CHERYL METAB OLIC PANEL bilirubin, total 0.5 mg/dL 0.2-1. 2 normal Not Available [facility] [address], [place], [address], 10/26/2024 04:53:37 10/25/19 25 10/26/2024 COMPR EHENS CHERYL METAB OLIC PANEL alkaline phosphatase 65 U/L 37-153 normal Not Available [facility] [address], [place], [address], 10/26/2024 04:53:37 10/25/19 25 10/26/2024 COMPR EHENS CHERYL METAB OLIC PANEL AST 16 U/L 10-35 normal Not Available [facility] [address], [place], [address], 10/26/2024 04:53:37 10/25/19 25 10/26/2024 COMPR EHENS CHERYL METAB OLIC PANEL ALT 8 U/L 6-29 normal Not Available [facility] [address], [place], [address], 10/26/2024 04:53:37 10/25/19 25 10/26/2024 CBC (H/H, RBC, INDIC ES, WBC, PLT) white blood cell count 7.1 thous and/u L 3.8-10 .8 normal Not Available [facility] [place] [facility] [address] [place], [place], [address], 10/26/2024 04:53:38 10/25/19 25 10/26/2024 CBC (H/H, RBC, INDIC ES, WBC, PLT) red blood cell count 3.99 chuy on/uL 3.80-5 .10 normal Not Available [facility] [place] [facility] [address] [place], [place], [address], 10/26/2024 04:53:38 10/25/19 25 10/26/2024 CBC (H/H, RBC, INDIC ES, WBC, PLT) hemoglobin 12.0 g/dL 11.7-1 5.5 normal Not Available [facility] [place] [facility] [address], [place], [address], 10/26/2024 04:53:38 10/25/19 25 10/26/2024 CBC (H/H, RBC, INDIC ES, WBC, PLT) hematocrit 37.0 % 35.0-4 5.0 normal Not Available [facility] [address], [place], [address], 10/26/2024 04:53:38 10/25/19 25 10/26/2024 CBC (H/H, RBC, INDIC ES, WBC, PLT) MCV 92.7 fL 80.0-1 00.0 normal Not Available [facility] [address], [place], [address], 10/26/2024 04:53:38 10/25/19 25 10/26/2024 CBC (H/H, RBC, INDIC ES, WBC, PLT) MCH 30.1 pg 27.0-3 3.0 normal Not Available [facility] [address] [place], [place], [address], 10/26/2024 04:53:38 10/25/19 25 10/26/2024 CBC (H/H, RBC, INDIC ES, WBC, PLT) MCHC 32.4 g/dL 32.0-3 6.0 normal For adult s, a sligh t decre ase in the calcu lated MCHC value (in the range of 30 to 32 g/dL) is most likel y not clini bird signi alexandra t; lorena er, it tova d be inter prete d with cauti on in [facility] with other red cell rocky eters and the patie nt's clini tracy condi tion. Not Available [facility] [place] [facility] [address], [place], [address], 10/26/2024 04:53:38 10/25/19 25 10/26/2024 CBC (H/H, RBC, INDIC ES, WBC, PLT) RDW 12.2 % 11.0-1 5.0 normal Not Available [facility] [place] [facility] [address], [place], [address], 10/26/2024 04:53:38 10/25/19 25 10/26/2024 CBC (H/H, RBC, INDIC ES, WBC, PLT) platelet count 251 thous and/u L 140-40 0 normal Not Available [facility] [address], [place], [address], 10/26/2024 04:53:38 10/25/19 25 10/26/2024 CBC (H/H, RBC, INDIC ES, WBC, PLT) MPV 10.8 fL 7.5-12 .5 normal Not Available [facility] [address], [place], [address], 10/26/2024 04:53:38 10/25/1910/26/2024 TSH TSH 0.50 mIU/L 0.40-4 .50 normal Not Available [facility] [place] [facility] [address] [place], [address], 10/26/2024 04:53:39 10/25/1910/26/2024 VITAM IN B12 vitamin B12 268 pg/mL 200-11 00 normal Pleas e Note: Altho ugh the refer ence range for vitam in B12 is 200-1 100 pg/mL , it has been repor ignacia that betwe en 5 and 10% of patie nts with value s betwe en 200 and 400 pg/mL may exper ience neuro psych iatri c and hemat ologi c abnor malit ies due to occul t B12 defic iency ; less than 1% of patie nts with value s above 400 pg/mL will have sympt oms. Not Available [facility] [place] [facility] [address] [place], [address], 10/26/2024 04:53:39 10/25/1910/26/2024 VITAM IN D,25- OH,TO PEREZ,I A vitamin D,25-oh,tota l,ia 42 NG/mL 30-100 normal Vitam in D Statu s 25-OH Vitam in D: Defic iency : <20 ng/mL Insuf ficie ncy: 20 - 29 ng/mL Optim al: > or = 30 ng/mL For 25-OH Vitam in D testi ng on patie nts on D2-zepeda pplem entat ion and patie nts for whom quant itati on of D2 and D3 fract ions is requi red, the [facility] Ass[facility] eD(TM ) 25-OH VIT D, (D2,D 3), LC/MS /MS is recom claudine d: order code 95395 (noemi ents >2yrs ). See Note [address] to have a [employer] copy faxed has been ackno wledg ed. [place]: [phone] Note 1 For addit ional infor óscar booker refer to http: //[facility] marilin mchugh.Ramiro Lynneia gnost ics.c om/fa q/FAQ 199 (This link is being provi ded for infor av reyes/ educpavan ibarra purpo ses only. ) Not Available [facility] [place] [facility] [address], [place], [address], 10/26/2024 04:53:40 Result Notes None recorded. Medical Equipment None Reported. Allergies Allergen ID Allergen Name Allergen Category Reaction Reaction Severity Criticality Documentation Date Start Date Code Code System Note Provider Name and Address Organization Details Recorded Time 3236 Product containin g penicilli n and antibioti c (product) medicatio n Not available Not available Not available 10/18/2024 76286 05 SNOMED [facility], [place] [facility] 14:22:39 Medications Name Sig Start Date Stop [...] Address Organization Details Last Updated DateTime 5 35819.8 6 g 33 kg/m2 153.04 cm 62 /min 115 mm[Hg] 72 mm[Hg] Kellie Cristobal [facility] 14:28:25 Social History None recorded. Functional Status None recorded. Mental Status None recorded. Family History Nothing Reported. Medical History No medical history recorded. Gynecological HistoryNo gynecological history recorded. Obstetrics History GPAL:G 0 P 0 0 0 0 Immunizations Vaccine Type Date Status Note Provider Nam e and Address Organization Details Recorded Time Respiratory syncytial virus (RSV) vaccine, unspecified 10/18/2024 completed Irene Gregory null, [facility] 10/18/2024 15:37:41 zoster recombinant 06/24/2021 completed Irene Gregory null, [facility] 10/25/2024 13:48:45 zoster recombinant 10/25/2024 completed Irene Gregory null, [facility] 10/25/2024 13:56:56 Past Encounters Encounter ID Performer Location Encounter Start Date Encounter Closed Date Diagnosis/Indication Diagnosis SNOMED-CT Code Diagnosis ICD10 Code Diagnosis Note [id number] STEPHANIE Goldstein [id number] [address] [place] [address] [phone] 1 08/10/2024 16:09:12 08/10/2024 16:30:47 Urinary tract infectious disease 67252962 N39.0 urine looks okay, check culture. Follow up based on results. Panic attack 770094682 F 41.0 Remeron with good effect, continue for now. Follow up with Yennifer if not improving. [id number] STEPHANIE Reynolds [id number] [address] [place] [address] [phone] [id number] 10/18/2024 14:17:29 10/18/2024 15:37:34 Recurrent major depression in remission 56802410 F33.40 Generalize d anxiety disorder 45100544 F41.1 Chronic insomnia 1168945 04 F51.04 Essential hypertension 72640305 I10 Carotid atherosclerosis 579547068 I65.29 Atheroscle rosis of coronary artery without angina pectoris 5769142437 77465 I25.10 Chronic ki dney disease stage 3 248048032 N18.30 Gastroesop hageal reflux disease without esophagitis 132331067 K21.9 Acquired hypothyroidism 576574191 E03.9 Degenerati ve joint disease involving multiple joints 733309392 M15.9 Body mass index 30+ - obesity 188171369 Z68.33 Long-term current use of proton pump inhibitor therapy 2687008485 57488136 Z79.899 Recurrent falls 97700025 2 R29.6 Health Concerns Section Related Observation LastModified by Organization Detai ls LastModified Time None Recorded Concern Status LastModified by Organization Details LastModified Time None Recorded Advance Directives Directive None Recorded Payers Encounter Date Sequence Insurance Name Policy Number Policy Vazquez Covered Member ID Vazquez Member ID Guarantor Name 08/10/2024 2 [place] Blessing Smyth Ogoley [id number] Blessing Smyth Ogoley 08/10/2024 1 MEDICARE B-[place]: [place]GS Blessing W Ogoley [id number] Blessing W Ogoley 10/18/2024 2 [place] Blessing W Ogoley [id number] Blessing W Ogoley 10/18/2024 1 [place]ICARE [place]: [place] Blessing W Ogoley [id number] Blessing Libra Ogoley Notes Date Note Type Note Provider Name and Address Organization Details Recorded Time 08/10/2024 text/html Acting weird, ricci ving mini panic like epsiodes where she gets very anxiousJospehine gave mirtazipine, which works well during episodes, but wanted her to drop off a urine to rule out UTI. Urine sample today with +/- leuks, no nitrites. STEPHANIE Goldstein [address] [place] [address], [phone], [facility] 08/10/2024 16:21:51 10/18/2024 text/html MARGARITA Lives at home with her who has full-time in-home care due to advancing Parkinson's diseasePatient's daughter Supriya provides a lot of care for both of them Family history Brother metastatic bladder cancer STEPHANIE Reynolds [address] [place] [address], , [place] [facility] 10/23/2024 12:43:15 OBGyn Episode No OBEpisode recorded.
--- OUTSIDE RECORDS SUMMARY | 2024-11-08 17:02 | XMS_ITS | Clinical Summary ---
Author Organization [facility] Location Address [address] [place] [address] Phone Care Team Providers Care Transmission Line Engineer Name Role Phone Lala Ruiz Primary Care Provider Surgical History Surgery Date Site/Laterality Comments KNEE SURGERY 2006 Left PROCEDURE:KNEE SURGERY HAND SURGERY 2014 Left PROCEDURE:HAND SURGERY;COMMENT:trigger finger APPENDECTOMY 1969 PROCEDURE:APPENDECTOMY SECTION PROCEDURE: SECTION CATARACT EXTRACTION W/ INTRAOCULAR LENS IMPLANT PROCEDURE:CATARACT EXTRACTION W/ INTRAOCULAR LENS IMPLANT HYSTERECTOMY PROCEDURE:HYSTERECTOMY CORONARY ARTERY BYPASS GRAFT 1979 PROCEDURE:CORONARY ARTERY BYPASS GRAFT;COMMENT:prior open abdominal aortic aneurysm repair (no prior CABG) TOTAL KNEE ARTHROPLASTY 03/15/2017 Left PROCEDURE:TOTAL KNEE ARTHROPLASTY;COMMENT:Procedur e: REPLACEMENT TOTAL KNEE; Surgeon: David Andrews MD; Location: [facility] ([facility] Service: Orthopedics; Laterality: Left; Medical History Medical History Date Comments Right hand pain DX:Right hand pa in;COMMENT:patient denies as acute problem High blood pressure DX:High bloo d pressure Hypothyroidism DX:Hypothyroidis m Hyperlipidemia DX:Hyperlipidemi a Osteoarthritis DX:Osteoarthriti s Vertigo DX:Vertigo GERD (gastroesophageal reflux disease) DX:GERD (gastroesophageal reflux disease) IBS (irritable bowel syndrome) D X:IBS (irritable bowel syndrome) Depression DX:Depression Rheumatic fever DX:Rheumatic fev er;COMMENT:as a child Atrial fibrillation (CMS/HCC) DX :Atrial fibrillation (HCC);COMMENT:patient does not have knowledge of this at visit 03/02/17 Anxiety DX:Anxiety Prediabetes DX:Prediabetes Obesity (BMI 35.0-39.9 witho ut comorbidity) DX:Obesity (BMI 35.0-39.9 wi [facility] comorbidity) Recurrent major depression r esistant to treatment (CMS/HCC) 07/16/2022 DX:Recurrent major depressio n resistant to treatment ([facility]) Family History Medical History Relation Name Comments [...] on file Sexual Orientation Not on file Obstetrics History Last Filed Vital Signs Vital Sign Reading [...] Health Maintenance Due Date Last Done Comments RSV Immunization Patients 60+ Years Old (1 - 1-dose 75+ series) 2010 Zoster Vaccines (2 of 2) 08/19/2021 06/24/2021 Cholesterol Screening (Lipid Panel) 09/17/2022 Depression Screening 09/17/2022 Falls Risk Assessment 09/17/2022 Medicare Annual Wellness Visit 09/17/2022 Osteoporosis Screening (Bone Density Screening) 09/17/2022 Social Influencers of Health Screening 09/17/2022 COVID-19 Vaccine ( season) 2024 01/23/2022, 07/17/2021, 11/29/2020, Additional history exists Hypertension/CHF/CAD Annual BMP Blood Test 07/25/2025 07/25/2024, 07/25/2024, 07/12/2024, Additional history exists DTaP,Tdap,and Td Vaccines (2 - Td or Tdap) 04/13/2032 04/13/2022 Pneumococcal Vaccine: 65+ Years Completed 07/07/2021, 07/08/2020, 07/07/2020 Influenza Vaccine Completed 06/20/2024, , 06/24/2021, Additional history exists HIB Vaccines Aged Out No longer eligi ble based on patient's age to complete this topic HPV Vaccines Aged Out No longer eligi ble based on patient's age to complete this topic Hepatitis A Vaccines Aged Out No long er eligible based on patient's age to complete this topic Hepatitis B Vaccines Aged Out No long er eligible based on patient's age to complete this topic IPV Vaccines Aged Out No longer eligi ble based on patient's age to complete this topic MMR Vaccines Aged Out No longer eligi ble based on patient's age to complete this topic Meningococcal ACWY Vaccine Aged Out N o longer eligible based on patient's age to complete this topic RSV Immunization Patients Under 20 months Aged Out No longer eligible based on patient's age to complete this topic Varicella Vaccines Aged Out No longer eligible based on patient's age to complete this topic Care Teams Transmission Line Engineer Relationship Specialty Start Date End Date Lala Ruiz PA PCP - General School Bus Attendant 11/07/21
== END 2024-11-08 15:06 | disposition home or self-care (01) ==
PROVIDERS: PCP Physician Assistant Medical; Visit Provider Internal Medicine Hypertension Specialist
DX: I12.9 Hypertensive chronic kidney disease with stage 1 through stage 4 chronic kidney disease, or unspecified chronic kidney disease (principal); N18.9 Chronic kidney disease, unspecified
CPT/HCPCS: 99214

== ENCOUNTER → 2024-11-08 14:53 | Outpatient (BNVA) | payer MEDICARE, MEDICAID, SELFPAY | PROVIDERS: PCP Physician Assistant Medical; Visit Provider Internal Medicine Hypertension Specialist | DX: I12.9 Hypertensive chronic kidney disease with stage 1 through stage 4 chronic kidney disease, or unspecified chronic kidney disease (principal); N18.9 Chronic kidney disease, unspecified | CPT/HCPCS: 99212 ==